=== PATIENT | female | born 1960 | race Caucasian/White ===

== ENCOUNTER 2019-04-06 09:24 | Outpatient (CLI) | payer MEDICARE, SELFPAY ==
[2019-04-06 09:38] LABS: Basophils Absolute Auto 0.08 K/mm3 (0.00-0.10); Eosinophils Absolute Auto 0.39 K/mm3 (0.02-0.50); Eosinophils Percent Auto 4.7 % (1.0-6.0); Hematocrit 42.2 % (35.0-49.0); Hemoglobin 14.2 g/dL (12.0-15.0); Immature Granulocyte Absolute 0.02 K/mm3 (0.00-0.00); Immature Granulocyte Percent A 0.2 % (0.0-0.0); Lymphocytes Absolute Auto 3.18 K/mm3 (1.10-4.50); Lymphocytes Percent Auto 38.2 % (18.0-42.0); Mean Corpuscular HGB Conc 33.6 g/dL (32.0-36.0); Mean Corpuscular Volume 92.1 fL (78.0-102.0); Mean Platelet Volume 9.9 fl (9.2-11.8); Monocytes Absolute Auto 0.57 K/mm3 (0.10-0.90); Monocytes Percent Auto 6.8 % (2.0-11.0); Neutrophils Absolute Auto 4.1 K/mm3 (1.7-7.2); Neutrophils Percent Auto 49.1 % (50.0-70.0); Platelet Count Result 301 K/mm3 (150-420); Red Blood Count 4.58 M/mm3 (4.20-5.40); Red Cell Distribution Width 13.2 % (11.6-14.4); White Blood Count 8.3 K/mm3 (4.8-10.8)
[2019-04-06 10:37] LABS: Anion Gap 15.1 mmol/L (7-16); Blood Urea Nitrogen 17 mg/dL (7-18); Calcium 9.4 mg/dL (8.5-10.1); Carbon Dioxide 28 mmol/L (21-32); Chloride 105 mmol/L (98-108); Estimated Glomerular Filt Rate 46; Glucose 112 mg/dL (70-99); Osmolality Calculated 300 mOsm/kg (285-295); Potassium 4.1 mmol/L (3.5-5.1); Sodium 144 mmol/L (136-145)
[2019-04-06 11:01] LABS: Alanine Aminotransferase 38 U/L (14-59); Alkaline Phosphatase 89 U/L (46-116); Aspartate Amino Transferase 25 U/L (15-37); Bilirubin,Total 0.5 mg/dL (0.00-1.00); Creatine Kinase 222 U/L (26-192); Thyroid Stimulating Hormone 3.12 uIU/mL (0.36-3.74); Total Protein 7.5 g/dL (6.4-8.2)
== END 2019-04-06 09:25 | disposition home or self-care (01) ==
PROVIDERS: PCP Family Medicine; Visit Provider Family Medicine
DX: E78.2 Mixed hyperlipidemia (principal); I10 Essential (primary) hypertension; R19.09 Other intra-abdominal and pelvic swelling, mass and lump
CPT/HCPCS: 36415; 80053; 82550; 84443; 85025

== ENCOUNTER 2019-07-30 12:03 | Outpatient (CLI) | payer MEDICARE, SELFPAY ==
[2019-07-30 12:14] LABS: Basophils Absolute Auto 0.07 K/mm3 (0.00-0.10); Basophils Percent Auto 0.8 % (0.0-1.0); Eosinophils Absolute Auto 0.56 K/mm3 (0.02-0.50); Eosinophils Percent Auto 6.7 % (1.0-6.0); Hematocrit 44.5 % (35.0-49.0); Hemoglobin 14.7 g/dL (12.0-15.0); Immature Granulocyte Absolute 0.04 K/mm3 (0.00-0.00); Immature Granulocyte Percent A 0.5 % (0.0-0.0); Lymphocytes Absolute Auto 2.77 K/mm3 (1.10-4.50); Lymphocytes Percent Auto 33.3 % (18.0-42.0); Mean Corpuscular Hemoglobin 31.4 pg (27.0-31.0); Mean Corpuscular Volume 95.1 fL (78.0-102.0); Mean Platelet Volume 9.6 fl (9.2-11.8); Monocytes Absolute Auto 0.49 K/mm3 (0.10-0.90); Monocytes Percent Auto 5.9 % (2.0-11.0); Neutrophils Absolute Auto 4.4 K/mm3 (1.7-7.2); Neutrophils Percent Auto 52.8 % (50.0-70.0); Platelet Count Result 298 K/mm3 (150-420); Red Blood Count 4.68 M/mm3 (4.20-5.40); Red Cell Distribution Width 13.2 % (11.6-14.4); White Blood Count 8.3 K/mm3 (4.8-10.8)
[2019-07-30 12:59] LABS: Hemoglobin A1C 6.4 % (<5.7)
[2019-07-30 13:11] LABS: Anion Gap 9.9 mmol/L (7-16); Blood Urea Nitrogen 15 mg/dL (7-18); Calcium 9.6 mg/dL (8.5-10.1); Carbon Dioxide 31 mmol/L (21-32); Chloride 107 mmol/L (98-108); Cholesterol 193 mg/dL (0-200); Creatine Kinase 114 U/L (26-192); Estimated Glomerular Filt Rate 50; Glucose 90 mg/dL (70-99); HDL Direct 46 mg/dL (40-60); LDL Cholesterol Calculated 112 mg/dL (<130); Osmolality Calculated 296 mOsm/kg (285-295); Potassium 4.9 mmol/L (3.5-5.1); Sodium 143 mmol/L (136-145); Triglycerides 176 mg/dL (0-150)
== END 2019-07-30 12:04 | disposition home or self-care (01) ==
LOC: CHSLAB 12:06
PROVIDERS: PCP Family Medicine; Visit Provider Family Medicine
DX: E78.2 Mixed hyperlipidemia (principal); R73.9 Hyperglycemia, unspecified; I10 Essential (primary) hypertension
CPT/HCPCS: 36415; 80048; 80061; 82550; 83036; 85025

== ENCOUNTER 2019-08-03 21:45 | Emergency (ER) | payer MEDICARE, OTHER, SELFPAY ==
[2019-08-03 21:45] VITALS: BP 122/96; PULSE 100; RESP 16; TEMP 37.1; O2SAT 97
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
--- NOTE | 2019-08-03 21:54 | ECG_ITS ---
Measurements Intervals [place] Rate: 94 P: 60 OR: 148 QRS: 54 QRSD: 110 T: 67 QT: 381 QTc: 476 Interpretive Statements SINUS RHYTHM INTRAVENTRICULAR CONDUCTION DELAY NONSPECIFIC ST & T-WAVE ABNORMALITY- INF/LAT LEADS BASELINE ARTIFACT- I, II, III, AVR, AVL, AVF, V1-V6 BORDERLINE ECG Electronically Signed On 08-05-2019 17:18:11 CDT by Javid Allison D.O.
[2019-08-03 22:20] LABS: Basophils Absolute Auto 0.08 K/mm3 (0.00-0.10); Basophils Percent Auto 0.9 % (0.0-1.0); Eosinophils Absolute Auto 0.64 K/mm3 (0.02-0.50); Eosinophils Percent Auto 7.3 % (1.0-6.0); Hematocrit 40.6 % (35.0-49.0); Hemoglobin 13.7 g/dL (12.0-15.0); Immature Granulocyte Absolute 0.04 K/mm3 (0.00-0.00); Immature Granulocyte Percent A 0.5 % (0.0-0.0); Lymphocytes Absolute Auto 2.47 K/mm3 (1.10-4.50); Lymphocytes Percent Auto 28.3 % (18.0-42.0); Mean Corpuscular HGB Conc 33.7 g/dL (32.0-36.0); Mean Corpuscular Hemoglobin 31.7 pg (27.0-31.0); Mean Platelet Volume 9.8 fl (9.2-11.8); Monocytes Absolute Auto 0.75 K/mm3 (0.10-0.90); Monocytes Percent Auto 8.6 % (2.0-11.0); Neutrophils Absolute Auto 4.7 K/mm3 (1.7-7.2); Neutrophils Percent Auto 54.4 % (50.0-70.0); Platelet Count Result 298 K/mm3 (150-420); Red Blood Count 4.32 M/mm3 (4.20-5.40); Red Cell Distribution Width 13.2 % (11.6-14.4); White Blood Count 8.7 K/mm3 (4.8-10.8)
[2019-08-03 22:32] LABS: Add Urine Microscopic? YES; Appearance Urine Sl Cloudy (Clear); Bilirubin Urine 1+ (Negative); Blood Urine Negative (Negative); Color Urine Yellow (Yellow); Glucose Urine UA Negative (Negative); Ketones Urine Trace (Negative); Leukocyte Esterase Ur Negative LEU/UL (Negative); Nitrate Urine Negative (Negative); Protein Urine 2+ (Negative); Specific Grav Ur >= 1.030 (1.010-1.020); pH Urine 5.5 (5.0-8.0)
[2019-08-03 22:36] LABS: Bacteria Urine 2+ /hpf; RBC Urine None seen /hpf (0-2); Squamous Epithelial Cell Urine Moderate /hpf (Few); WBC Urine None seen /hpf (0-3)
[2019-08-03 22:42] LABS: Amphetamine Screen Urine Negative (Negative); Barbiturate Screen Urine Negative (Negative); Benzodiazepines Screen Urine Negative (Negative); Cannabinoid Screen Urine Positive (Negative); Cocaine Screen Urine Negative (Negative); Methadone Screen Urine Negative (Negative); Opiate Screen Urine Negative (Negative); Phencyclidine Screen Urine Negative (Negative)
[2019-08-03 22:44] LABS: Alanine Aminotransferase 32 U/L (14-59); Albumin Level 3.4 g/dL (3.4-5.0); Alkaline Phosphatase 83 U/L (46-116); Anion Gap 13.5 mmol/L (7-16); Aspartate Amino Transferase 20 U/L (15-37); Bilirubin,Total 0.3 mg/dL (0.00-1.00); Blood Urea Nitrogen 21 mg/dL (7-18); Calcium 8.7 mg/dL (8.5-10.1); Carbon Dioxide 27 mmol/L (21-32); Chloride 105 mmol/L (98-108); Estimated CRCL calculation 41 ml/min; Estimated Glomerular Filt Rate 33; Glucose 134 mg/dL (70-99); Osmolality Calculated 299 mOsm/kg (285-295); Potassium 3.5 mmol/L (3.5-5.1); Salicylate 2.8 mg/dL (2.8-20.0); Sodium 142 mmol/L (136-145); Thyroid Stimulating Hormone 4.34 uIU/mL (0.36-3.74)
[2019-08-03 22:46] LABS: Acetaminophen 0 ug/mL (10-30); Ethanol < 3 mg/dL (0-6)
--- NOTE | 2019-08-03 23:03 | PC.NURSE ---
Report received, pt. resting and wanting her HS Effexor med. Order from ERP to given pts. own supply of Effexor. Med given and pt. took med s problem. Pt. voicing her wishes to go home and wondering how much longer it would take. Pt. informed of awaiting labs and need to talk c a counselor.
[2019-08-03] MEDS: LORAZEPAM 0.5 MG TABLET PO (23:11)
--- NOTE | 2019-08-04 03:46 | PC.NURSE ---
Pt. yelling and wanting her called to go home. Restraints removed and ERP speaking jose Lopez, counselor and p consultation pt. will be released home to her spouse. Pt. is not suicidal or homicidal and only wants someone to pick her up and take her home.
[2019-08-04 03:52] VITALS: BP 140/78; PULSE 85; RESP 20; TEMP 36.6; O2SAT 97
== END 2019-08-04 03:57 | disposition home or self-care (01) ==
PROVIDERS: Emergency Provider Emergency Medicine; PCP Family Medicine
DX: R45.1 Restlessness and agitation (principal); F41.9 Anxiety disorder, unspecified; Z79.899 Other long term (current) drug therapy; E78.5 Hyperlipidemia, unspecified; I10 Essential (primary) hypertension; F17.200 Nicotine dependence, unspecified, uncomplicated
CPT/HCPCS: 36415; 80053; 80307; 81001; 84443; 85025; 93005; 99284; A9270

== ENCOUNTER 2019-08-06 16:19 | Outpatient (CLI) | payer MEDICARE, SELFPAY ==
[2019-08-06 17:13] LABS: Anion Gap 10.4 mmol/L (7-16); Blood Urea Nitrogen 16 mg/dL (7-18); Calcium 9.5 mg/dL (8.5-10.1); Carbon Dioxide 30 mmol/L (21-32); Chloride 106 mmol/L (98-108); Estimated Glomerular Filt Rate 47; Glucose 78 mg/dL (70-99); Osmolality Calculated 294 mOsm/kg (285-295); Potassium 4.4 mmol/L (3.5-5.1); Sodium 142 mmol/L (136-145)
== END 2019-08-06 16:20 | disposition home or self-care (01) ==
LOC: CHSLAB 16:21
PROVIDERS: PCP Family Medicine; Visit Provider Family Medicine
DX: I10 Essential (primary) hypertension (principal)
CPT/HCPCS: 36415; 80048

== ENCOUNTER 2019-08-21 18:57 | Emergency (ER) | payer MEDICARE, OTHER, SELFPAY ==
--- NOTE | ~2019-08-21 | XR_ITS ---
EXAMINATION: XR chest 1V portable DATE: 08/21/2019 19:23 INDICATION: Confusion. Agitation. TECHNIQUE: A single frontal view of the chest was obtained. COMPARISON: Chest 2 views 03/04/2014 FINDINGS: The chest demonstrates clear lungs without pneumonia, pleural effusion, or pneumothorax. Th e heart size is normal. Calcified mediastinal lymph nodes are consistent with old granulomatous disea se. IMPRESSION: 1. No acute cardiopulmonary disease. Reviewed, dictated and finalized at location A.
--- NOTE | ~2019-08-21 | CT_ITS ---
EXAMINATION: CT brain wo con DATE: 08/21/2019 19:23 INDICATION: Confusion. Head injury. TECHNIQUE: Computed tomography (CT) of the head was performed without intravenous contrast. The mA wa s adjusted according to patient size. Iterative reconstruction technique was employed. The dose-lengt h product was 605.33 mGy-cm. COMPARISON: Head CT 08/20/2016 FINDINGS: There is no intracranial hemorrhage, acute infarction, or abnormal intracranial mass lesion . The ventricles are normal in size. The orbits are normal. There is mucosal thickening in the parana diann sinuses. There is a trace right mastoid effusion. IMPRESSION: 1. Normal brain. Reviewed, dictated and finalized at location A. IMPRESSION: 1. Normal brain.
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
[2019-08-21 19:05] VITALS: BP 122/70; PULSE 83; RESP 18; TEMP 37.1; O2SAT 97
--- NOTE | 2019-08-21 19:09 | ECG_ITS ---
Measurements Intervals [place] Rate: 79 P: 66 [place]: 174 QRS: 31 QRSD: 113 T: 48 QT: 410 QTc: 472 Interpretive Statements SINUS RHYTHM INTRAVENTRICULAR CONDUCTION DELAY BORDERLINE ST-T WAVE ABNORMALITY- INF/LAT LEADS BASELINE ARTIFACT- I, II, III, AVR, AVL, AVF BORDERLINE ECG Electronically Signed On 08-21-2019 20:59:23 CDT by Javid Allison D.O.
[2019-08-21 19:24] LABS: Basophils Absolute Auto 0.08 K/mm3 (0.00-0.10); Eosinophils Absolute Auto 0.46 K/mm3 (0.02-0.50); Eosinophils Percent Auto 5.7 % (1.0-6.0); Hematocrit 38.9 % (35.0-49.0); Hemoglobin 13.4 g/dL (12.0-15.0); Immature Granulocyte Absolute 0.05 K/mm3 (0.00-0.00); Immature Granulocyte Percent A 0.6 % (0.0-0.0); Lymphocytes Absolute Auto 2.43 K/mm3 (1.10-4.50); Lymphocytes Percent Auto 29.9 % (18.0-42.0); Mean Corpuscular HGB Conc 34.4 g/dL (32.0-36.0); Mean Corpuscular Hemoglobin 32.4 pg (27.0-31.0); Mean Platelet Volume 9.9 fl (9.2-11.8); Monocytes Absolute Auto 0.65 K/mm3 (0.10-0.90); Neutrophils Absolute Auto 4.5 K/mm3 (1.7-7.2); Neutrophils Percent Auto 54.8 % (50.0-70.0); Platelet Count Result 268 K/mm3 (150-420); Red Blood Count 4.14 M/mm3 (4.20-5.40); Red Cell Distribution Width 13.2 % (11.6-14.4); White Blood Count 8.1 K/mm3 (4.8-10.8)
[2019-08-21 19:48] LABS: Acetaminophen 0 ug/mL (10-30); Alanine Aminotransferase 32 U/L (14-59); Albumin Level 3.5 g/dL (3.4-5.0); Alkaline Phosphatase 90 U/L (46-116); Anion Gap 11.8 mmol/L (7-16); Aspartate Amino Transferase 19 U/L (15-37); Bilirubin,Total 0.5 mg/dL (0.00-1.00); Blood Urea Nitrogen 14 mg/dL (7-18); Calcium 8.8 mg/dL (8.5-10.1); Carbon Dioxide 27 mmol/L (21-32); Chloride 103 mmol/L (98-108); Estimated CRCL calculation 54 ml/min; Estimated Glomerular Filt Rate 44; Ethanol < 3 mg/dL (0-6); Glucose 83 mg/dL (70-99); Osmolality Calculated 285 mOsm/kg (285-295); Potassium 3.8 mmol/L (3.5-5.1); Salicylate 3.3 mg/dL (2.8-20.0); Sodium 138 mmol/L (136-145); Thyroid Stimulating Hormone 2.31 uIU/mL (0.36-3.74)
[2019-08-21 20:10] LABS: Appearance Urine Clear (Clear); Bilirubin Urine Negative (Negative); Color Urine Yellow (Yellow); Glucose Urine UA Negative (Negative); Ketones Urine Negative (Negative); Leukocyte Esterase Ur Negative LEU/UL (Negative); Nitrate Urine Negative (Negative); Protein Urine Negative (Negative); Specific Grav Ur 1.015 (1.010-1.020); pH Urine 6.5 (5.0-8.0)
[2019-08-21 20:14] LABS: Add Urine Microscopic? YES; Bacteria Urine Trace /hpf; Blood Urine Trace (Negative); RBC Urine 0-2 /hpf (0-2); Squamous Epithelial Cell Urine Few /hpf (Few); WBC Urine 0-3 /hpf (0-3)
[2019-08-21 20:16] LABS: Amphetamine Screen Urine Negative (Negative); Barbiturate Screen Urine Negative (Negative); Benzodiazepines Screen Urine Positive (Negative); Cannabinoid Screen Urine Positive (Negative); Cocaine Screen Urine Negative (Negative); Methadone Screen Urine Negative (Negative); Opiate Screen Urine Negative (Negative); Phencyclidine Screen Urine Negative (Negative)
[2019-08-21] MEDS: TETANUS,DIPHTHERIA,AC PERTUSSIS ADULT 0.5 ML (ADACEL) (20:49)
[2019-08-21] MEDS: NEOMYCIN/POLYMYXIN/BACITRACIN OINTMENT PACKET 1 PACKET (20:51)
[2019-08-21 21:05] VITALS: BP 118/65; PULSE 85
== END 2019-08-21 21:05 | disposition home or self-care (01) ==
PROVIDERS: Emergency Provider Emergency Medicine; PCP Family Medicine
DX: S01.111A Laceration without foreign body of right eyelid and periocular area, initial encounter (principal); R45.1 Restlessness and agitation; S09.90XA Unspecified injury of head, initial encounter; Z79.899 Other long term (current) drug therapy
CPT/HCPCS: 12011; 36415; 70450; 71045; 80053; 80307; 81001; 84443; 85025; 90471; 90715; 93005; 99284

== ENCOUNTER 2019-08-25 10:56 | Outpatient (CLI) | payer MEDICARE, OTHER, SELFPAY ==
--- NOTE | ~2019-08-25 | MR_ITS ---
EXAMINATION: MR brain/brain stem wo/w con DATE: 08/25/2019 12:00 INDICATION: Confusion. TECHNIQUE: Magnetic resonance imaging (MRI) of the brain and brainstem was performed without and with 18 mL MultiHance intravenous contrast. Sequences included sagittal and axial T1-weighted FSE, axial diffusion-weighted FS EPI, axial T2*-weighted GRE, axial T2-weighted FLAIR Propeller, and axial T2-we ighted Propeller. Postcontrast sequences included axial and coronal T1-weighted FSE. Apparent diffusi on coefficient (ADC) maps were created. COMPARISON: Brain MRI 09/08/2016, cervical spine MRI 11/29/2016 FINDINGS: There are approximately 8 total lesions of increased T2-weighted signal intensity in the br ain. Of these lesions, approximately most are periventricular, two are juxtacortical, and one is infr atentorial. None of the lesions enhance. There is no intracranial hemorrhage, acute infarction, or a bnormal intracranial mass lesion. The ventricles are normal in size. There is mucosal thickening in t he paranasal sinuses. The orbits are normal. The mastoid air cells are normal. IMPRESSION: 1. Worsened cerebral white matter disease, consistent with multiple sclerosis. Reviewed, dictated and finalized at location A.
== END 2019-08-25 10:57 | disposition home or self-care (01) ==
LOC: CHSIMG 11:00
PROVIDERS: PCP Family Medicine; Visit Provider Family Medicine
DX: R41.82 Altered mental status, unspecified (principal)
CPT/HCPCS: 70553; A9577

== ENCOUNTER 2019-09-07 14:54 | Outpatient (CLI) | payer MEDICARE, SELFPAY ==
[2019-09-07 16:22] LABS: Erythrocyte Sedimentation Rate 20 mm/hr (0-20)
[2019-09-07 16:25] LABS: Folic Acid 13.7 ng/mL (8.6->20); Vitamin B12 333 pg/mL (193-986)
[2019-09-07 16:26] LABS: CRP < 0.2 mg/dL (0.0-0.9)
[2019-09-10 10:14] LABS: RPR Screen Non-Reactive (Non-Reactive)
[2019-09-10 13:37] LABS: Lithium <0.15 mmol/L (0.60-1.20)
[2019-09-10 17:43] LABS: Lyme Disease Ab (IgM), Blot Negative (Negative); Lyme Disease Ab(IgG), Blot Negative (Negative)
[2019-09-12 15:13] LABS: Lead, Blood 1 mcg/dL (<5)
[2019-09-13 10:19] LABS: Collection Sample VENOUS
[2019-10-02 14:23] LABS: Collection Sample BLOOD
== END 2019-09-07 14:55 | disposition home or self-care (01) ==
LOC: CHSLAB 14:59
PROVIDERS: PCP Family Medicine
DX: R41.0 Disorientation, unspecified (principal); R27.9 Unspecified lack of coordination; G93.49 Other encephalopathy
CPT/HCPCS: 36415; 80178; 82175; 82607; 82746; 83655; 83825; 85652; 86140; 86592; 86617

== ENCOUNTER 2019-09-19 13:40 | Outpatient (CLI) | payer MEDICARE, OTHER, SELFPAY ==
--- NOTE | ~2019-09-19 | MR_ITS ---
EXAMINATION: MR cervical spine wo/w con EXAM DATE: 09/19/2019 14:58 INDICATION: Multiple sclerosis. TECHNIQUE: Multi-sequential, multiplanar MR images of the cervical spine were obtained without contra st. Axial T2, axial T2 MERGE sequence. Sagittal T1, T2, T2 fat saturation images also obtained. Axi al T1 weighted sequence. Patient was then injected with 18 mL Multihance intravenous contrast and re imaged. Postcontrast axial and sagittal T1-weighted fat saturation sequences were obtained. Compari son is made to prior examination from 11/29/2016. FINDINGS: There is mild to moderate loss of the C5-6 and 6-7 disc height, mild at C4-5. The vertebra l bodies are aligned in the AP dimension. There are no suspicious marrow signal abnormalities. Parasp inal soft tissue is unremarkable. Again there are several small regions of increased T2 signal intensity within the spinal cord, likely myelomalacia from prior episodes of multiple sclerosis. There is a new punctate focus of increased T 2 signal, and associated enhancement within the left aspect of the spinal cord at the mid C6 level, m ost likely focus of acute inflammation. This is only about 2 mm in size. Level by level evaluation: C2-C3: Disc does not extend beyond the endplate margin. Uncovertebral joint arthropathy: None. Facet joint arthropathy: Mild. Neural foraminal stenosis: No stenosis. Central canal stenosis: No stenosis. C3-C4: Disc does not extend beyond the endplate margin. Uncovertebral joint arthropathy: None. Facet joint arthropathy: Mild. Neural foraminal stenosis: No stenosis. Central canal stenosis: No stenosis. C4-C5: There is a mild diffuse disc bulge. Uncovertebral joint arthropathy: Mild bilateral. Facet joint arthropathy: Mild to moderate bilateral. Neural foraminal stenosis: Mild to moderate left, mild right. Central canal stenosis: Mild. C5-C6: There is a mild diffuse disc bulge. Uncovertebral joint arthropathy: Mild bilateral. Facet joint arthropathy: Moderate bilateral. Neural foraminal stenosis: Mild bilateral. Central canal stenosis: Mild. C6-C7: There is a mild diffuse disc bulge asymmetric to the right Uncovertebral joint arthropathy: Moderate right, mild left. Facet joint arthropathy: Mild bilateral. Neural foraminal stenosis: Mild to moderate bilateral. Central canal stenosis: Mild. C7-T1: Disc does not extend beyond the endplate margin. Uncovertebral joint arthropathy: None. Facet joint arthropathy: Mild to moderate right, mild left. Neural foraminal stenosis: No stenosis. Central canal stenosis: No stenosis. IMPRESSION: 1. Punctate focus of spinal cord enhancement at C6 level could be acute focus of inflammation. 2. Several other small regions of chronic spinal cord myelomalacia. 3. Mild to moderate cervical spondylosis. Reviewed, dictated and finalized at location A.
== END 2019-09-19 13:41 | disposition home or self-care (01) ==
PROVIDERS: PCP Family Medicine
DX: G35 Multiple sclerosis (principal); M47.892 Other spondylosis, cervical region
CPT/HCPCS: 72156; A9577

== ENCOUNTER 2019-09-25 12:40 | Outpatient (CLI) | payer MEDICARE, OTHER, SELFPAY ==
--- NOTE | 2019-09-25 13:30 | NEURO_ITS ---
TEST: ELECTROENCEPHALOGRAM DIAGNOSIS: CONFUSION; FALLS PATIENT NUMBER: [id number] EEG NUMBER: [id number] RECORDING DATE: 09/25/19 CLINICAL HISTORY: Patient reports she fell and hit her head a couple of months ago and has been having confusion and unsteady gait since then. CONDITION OF RECORDING: Awake, drowsy and sleep EEG DESCRIPTION: Basic resting occipital frequency consists of small amount of poorly organized low voltage 8-9hz alpha mixed with very low voltage 15-18hz beta. Throughout the tracing intermittent 2-3hz delta activity is seen. During drowsiness low voltage beta activity is seen diffusely mixed with waxing and waning posterior alpha rhythms. Bilateral symmetrical sleep activity is seen during sleep. Photic stimulation produced normal drive. Nonparoxysmal. Nonfocal. Nonlateralizing. IMPRESSION: Abnormal record due to the absence of normal background rhythms and the presence of the bi-hemispheric theta and delta activity intermittently. Clinical correlation recommended. These abnormalities could be suggestive of underlying organic or metabolic encephalopathy or focal structural lesion. MTDD
== END 2019-09-25 12:41 | disposition home or self-care (01) ==
PROVIDERS: PCP Family Medicine
DX: R41.0 Disorientation, unspecified (principal); R94.01 Abnormal electroencephalogram [EEG]
CPT/HCPCS: 95816

== ENCOUNTER 2019-10-22 15:58 | Outpatient (RCR) | payer MEDICARE, OTHER, SELFPAY ==
--- NOTE | 2019-10-22 16:39 | PTOPEVAL ---
Thank you for referring Jannie Peña to [facility].? The patient is scheduled to be seen for therapy? ___3_x/week for _4__ weeks. Please review, sign, date and return this plan of care MEE. I agree with and certify that the following plan of care is medically necessary. Referring Physician Date Admitting Provider: Attending Provider: PHYSICIAN NOT ON STAFF Referring Provider: *PT Outpatient Evaluation Start: 10/22/19 16:04 Freq: Status: Active Protocol: Document 10/22/19 16:05 BERNARD (Rec: 10/22/19 16:39 BERNARD [id number]) Therapy Assessment Status Assessment Status Assessment Status Evaluation Outpatient Past Medical History Cardiovascular History Hx Hypercholesterolemia Yes Gastrointestinal History Hx Gastric Bypass Surgery Yes Endocrine History Hx Hypothyroidism Yes Reproductive History Hx Post Menopausal Yes Psychosocial History Hx Depression Yes Evaluation Information Problem Diagnosis frequent falls, MS Onset 07/22/19 Subjective Information Pt. reports that she had Query Text:As Reported By Patient/ recent brain scan that Family revealed MS. She states that she has been fallilng frequently. she reports that she has fallen about 4 times and had to go to the ER several times. She states that she is unsure of why she falls. She states that she does not use an AD. She states that she has a walker at home and a cane but does not want to use them. She reports that her goal is to improve her balance and fall less Prior Level of Function Activity Level (Last 3 Months) Occupation disability Hand Dominance Right Activity of Daily Living Ability Needs Some Help Indoor/Home Mobility Needs Some Help Community Mobility Needs Some Help Stairs Ability Needs Some Help Functional Cognition (Planning, Shopping Dependent , Taking Medications) Cooking No Cleaning No Laundry No Shopping No Driving No Pain Assessment Self Report Self Report Pain Level 0 Pain Score Pain Score 0: Self Report Lower Extremity Muscle Strength Testing General Lower Extremity Strength Gross Lowe
== END 2019-11-19 10:31 | disposition home or self-care (01) ==
LOC: CHSPT 15:58
DX: G35 Multiple sclerosis (principal)
CPT/HCPCS: 97110; 97112; 97161; 97530

== ENCOUNTER 2020-01-18 14:08 | Outpatient (CLI) | payer MEDICARE, SELFPAY ==
[2020-01-18 15:53] LABS: Basophils Absolute Auto 0.07 K/mm3 (0.00-0.10); Basophils Percent Auto 0.8 % (0.0-1.0); Eosinophils Absolute Auto 0.56 K/mm3 (0.02-0.50); Eosinophils Percent Auto 6.8 % (1.0-6.0); Hemoglobin 13.4 g/dL (12.0-15.0); Immature Granulocyte Absolute 0.04 K/mm3 (0.00-0.00); Immature Granulocyte Percent A 0.5 % (0.0-0.0); Lymphocytes Absolute Auto 2.97 K/mm3 (1.10-4.50); Lymphocytes Percent Auto 35.8 % (18.0-42.0); Mean Corpuscular HGB Conc 32.7 g/dL (32.0-36.0); Mean Corpuscular Hemoglobin 31.5 pg (27.0-31.0); Mean Corpuscular Volume 96.5 fL (78.0-102.0); Mean Platelet Volume 10.4 fl (9.2-11.8); Monocytes Absolute Auto 0.57 K/mm3 (0.10-0.90); Monocytes Percent Auto 6.9 % (2.0-11.0); Neutrophils Absolute Auto 4.1 K/mm3 (1.7-7.2); Neutrophils Percent Auto 49.2 % (50.0-70.0); Platelet Count Result 358 K/mm3 (150-420); Red Blood Count 4.25 M/mm3 (4.20-5.40); Red Cell Distribution Width 12.9 % (11.6-14.4); White Blood Count 8.3 K/mm3 (4.8-10.8)
[2020-01-18 16:07] LABS: Alanine Aminotransferase 38 U/L (14-59); Albumin Level 3.6 g/dL (3.4-5.0); Alkaline Phosphatase 103 U/L (46-116); Anion Gap 6 mmol/L (8-16); Aspartate Amino Transferase 23 U/L (15-37); Bilirubin,Total 0.4 mg/dL (0.00-1.00); Blood Urea Nitrogen 17 mg/dL (7-18); Calcium 9.2 mg/dL (8.5-10.1); Carbon Dioxide 29 mmol/L (21-32); Chloride 107 mmol/L (98-108); Estimated Glomerular Filt Rate 52; Glucose 95 mg/dL (70-99); Osmolality Calculated 295 mOsm/kg (285-295); Potassium 4.5 mmol/L (3.5-5.1); Sodium 142 mmol/L (136-145); Thyroid Stimulating Hormone 1.09 uIU/mL (0.36-3.74); Total Protein 7.4 g/dL (6.4-8.2)
== END 2020-01-18 14:09 | disposition home or self-care (01) ==
LOC: CHSLAB 14:11
PROVIDERS: PCP Family Medicine; Visit Provider Family Medicine
DX: E03.8 Other specified hypothyroidism (principal); I10 Essential (primary) hypertension
CPT/HCPCS: 36415; 80053; 84443; 85025

== ENCOUNTER 2020-06-18 22:03 | Observation (INO) | payer MEDICARE, OTHER, SELFPAY ==
--- NOTE | ~2020-06-18 | XR_ITS ---
EXAMINATION: XR chest 1V portable EXAM DATE: 06/18/2020 22:25 INDICATION: Shortness of breath. Syncope. TECHNIQUE: Portable AP frontal chest x-ray was obtained. Comparison is made to prior examination from 08/21/2019. FINDINGS: The lungs are clear. There are no pleural effusions. The cardiomediastinal silhouette is within normal limits. There is no pneumothorax suspected. The bones and soft tissues are unremarkab le. IMPRESSION: No acute cardiopulmonary findings. Reviewed, dictated and finalized at location G.
--- NOTE | ~2020-06-18 | CT_ITS ---
EXAMINATION: CT brain wo [facility] EXAM DATE: 06/18/2020 22:45 INDICATION: Fall, syncope, hit frontal head, frontal head pain. TECHNIQUE: Spiral CT of the head was performed without contrast. Axial, coronal and sagittal images were reviewed. The dose-length product (DLP) for this examination was 605.33 mGy-cm. The exposure w as tailored according to patient size, and iterative reconstruction (ASIR) was used as additional dos e reduction technique. Comparison is made to prior examination from 08/21/2019. FINDINGS: There is no acute intraparenchymal hemorrhage. No evidence of intraparenchymal brain mass lesion. No evidence of acute infarction. There is no mass effect or midline shift. The ventricles are normal in size. There are no extra-axial collections. There are no acute calvarial fractures. T he orbits are unremarkable. Soft tissue is unremarkable. The visualized sinuses and mastoid air yodit ls are well aerated. IMPRESSION: 1. No acute intracranial findings. Reviewed, dictated and finalized at location G.
--- NOTE | ~2020-06-18 | US_ITS ---
EXAMINATION: US venous doppler [facility] DATE: 06/19/2020 09:09 INDICATION: Syncope. TECHNIQUE: Grayscale ultrasound images without and with compression and Doppler ultrasound images of the bilateral lower extremity veins were obtained. COMPARISON: None. FINDINGS: The visualized portions of right common femoral vein, profunda (deep) femoral vein, femoral vein, pop liteal vein, peroneal veins, posterior tibial veins, and greater saphenous vein outflow are patent. The visualized portions of left common femoral vein, profunda femoral vein, femoral vein, popliteal v ein, peroneal veins, posterior tibial veins, and greater saphenous vein outflow are patent. IMPRESSION: 1. No deep venous thrombosis. Reviewed, dictated and finalized at location B.
--- NOTE | ~2020-06-18 | CT_ITS ---
EXAMINATION: CTA chest PE protocol DATE: 06/19/2020 09:48 INDICATION: Syncope. TECHNIQUE: Computed tomography angiography (CTA) of the chest was performed with 100 mL Omnipaque-350 intravenous contrast timed to evaluate the pulmonary arteries. Coronal maximum intensity projection 3D-reconstructions were created by the technologist. Automated exposure control and iterative reconst ruction technique were employed. The dose-length product was 1016.36 mGy-cm. COMPARISON: None. FINDINGS: There is mild atelectasis bilaterally. A calcified left lung nodule and calcified left austin r and mediastinal lymph nodes are consistent with old granulomatous disease. The heart size is normal . No pericardial effusion. There is no pulmonary embolus. Calcifications in the liver and spleen are consistent with old granulomatous disease. There is a lap band around the proximal stomach. There is mild thoracic spondylosis. IMPRESSION: 1. No pulmonary embolus. Reviewed, dictated and finalized at location B. IMPRESSION: 1. No pulmonary embolus.
[2020-06-18 22:05] VITALS: PULSE 101
--- NOTE | 2020-06-18 22:07 | ECG_ITS ---
Measurements Intervals [place] Rate: 100 P: 72 [place]: 152 QRS: 67 QRSD: 113 T: 105 QT: 361 QTc: 466 Interpretive Statements SINUS TACHYCARDIA INTRAVENTRICULAR CONDUCTION DELAY NONSPECIFIC ST & T-WAVE ABNORMALITY- DIFFUSE LEADS BASELINE ARTIFACT- I, II, III, AVR, AVF BORDERLINE ECG Electronically Signed On 06-19-2020 6:42:37 CDT by Javid Allison D.O.
[2020-06-18 22:08] VITALS: BP 137/78; PULSE 106; RESP 22; TEMP 36.3; O2SAT 96
[2020-06-18 22:19] VITALS: O2SAT 91
--- NOTE | 2020-06-18 22:25 | ED.SYNCOPE ---
HPI - Syncope General Chief Complaint: Syncope Stated Complaint: AMB Time Seen by Provider: 06/18/20 22:15 Source: patient, family and EMS Mode of arrival: EMS Limitations: clinical condition History of Present Illness HPI narrative: Patient is brought in after a syncopal episode on the toilet at home. She reportedly had not felt well and had been cool and clammy prior to falling on her face. She was only briefly out, for a few seconds, after the fall according to her . She quickly came to and was responsive. Therefore the episode is felt to have been pretty brief seconds long. According to the she has had previous episodes of syncope, in the distant past. These have not been associated with shortness of breath or any chest pain, or any other specific symptoms. No other symptoms. Nothing is known to have precipitated this except being on the toilet, but apparently she felt presyncopal prior to sitting on the toilet. Context, sitting on the toilet. No other associated signs or symptms MD complaint: felt faint Onset (ago): minute(s) Prodromal symptoms: lightheaded, diaphoresis and nausea/vomiting Witnessed: No Context: other (when walking) Injuries sustained associated with event: other (fell on forehead) Current symptoms: back to baseline History: previous syncopal episode Related Data Home Medications Medication Instructions Recorded Confirmed atorvastatin 40 mg PO DAILY 08/03/19 06/18/20 venlafaxine 75 mg PO BID 08/03/19 06/18/20 albuterol sulfate [ProAir HFA] 2 puff INHALATION PRN PRN 08/21/19 06/18/20 fluticasone propionate [Flovent 2 inh INHALATION DAILY 08/21/19 06/18/20 Diskus] glatiramer [Glatopa] See Rx Instructions .ROUTE .COMPLEX 06/18/20 06/18/20 levothyroxine [Synthroid] 75 mcg PO DAILY 06/18/20 06/18/20 losartan [Cozaar] 100 mg PO DAILY 06/18/20 06/18/20 potassium chloride 20 meq PO DAILY 06/18/20 06/18/20 Allergies Allergy/AdvReac Type Severity Reaction Status Date / Time aspirin [Fiorinal] Allergy Intermediate Verified 10/04/16 13:16 caffeine [Fiorinal] Allergy Intermediate Verified 10/04/16 13:16 codeine Allergy Intermediate Verified 06/10/11 12:19 adhesive Allergy Unknown RASH Verified 11/08/17 14:23 butalbital AdvReac Unknown CONFUSION Verified 11/08/17 14:24 Antihistamines Allergy Intermediate Uncoded 06/10/11 12:20 ANTIHISTAMINES Allergy Unknown HIVES Uncoded 11/08/17 14:23 Review of Systems Constitutional: Constitutional: Reports no additional constitutional complaints Eyes: Eyes: Reports no additional eye complaints ENT: Reports system reviewed and no additional complaints, except as documented Cardiovascular: Cardiovascular: Reports no additional cardiovascular complaints Respiratory: Respiratory: Reports no additional respiratory complaints Gastrointestinal: Gastrointestinal: Reports no additional gastrointestinal complaints Genitourinary: Genitourinary: Reports no additional female genitourinary complaints Musculoskeletal: Musculoskeletal: Reports no additional musculoskeletal complaints Integumentary/Breasts: Skin/Breast: Reports system reviewed and no additional complaints, except as docu Neurologic: Reports system reviewed and no additional complaints, except as documented Psychiatric: Psychiatric: Reports no additional psychiatric complaints Endocrine: Endocrine: Reports no additional endocrine complaints Hematologic/Lymphatic: Hematologic/Lymphatic: Reports no additional hematologic/lymphatic complaints [facility] Past Medical History Medical History (Updated 06/19/20 @ 05:09 by Damián Vieira MD) Anxiety Dyslipidemia Hypertension Surgical History Surgical History H/O bariatric surgery gastric sleeve History of back surgery History of carpal tunnel surgery History of hysterectomy Family History Family History Father Hypertension Father Hyp
[2020-06-18 22:38] LABS: Basophils Absolute Auto 0.05 K/mm3 (0.00-0.10); Basophils Percent Auto 0.7 % (0.0-1.0); Eosinophils Absolute Auto 0.13 K/mm3 (0.02-0.50); Eosinophils Percent Auto 1.7 % (1.0-6.0); Hematocrit 44.9 % (35.0-49.0); Hemoglobin 14.4 g/dL (12.0-15.0); Immature Granulocyte Absolute 0.12 K/mm3 (0.00-0.00); Immature Granulocyte Percent A 1.6 % (0.0-0.0); Lymphocytes Absolute Auto 3.36 K/mm3 (1.10-4.50); Lymphocytes Percent Auto 43.8 % (18.0-42.0); Mean Corpuscular HGB Conc 32.1 g/dL (32.0-36.0); Mean Corpuscular Hemoglobin 30.4 pg (27.0-31.0); Mean Corpuscular Volume 94.9 fL (78.0-102.0); Mean Platelet Volume 9.8 fl (9.2-11.8); Monocytes Absolute Auto 0.09 K/mm3 (0.10-0.90); Monocytes Percent Auto 1.2 % (2.0-11.0); Neutrophils Absolute Auto 3.9 K/mm3 (1.7-7.2); Platelet Count Result 356 K/mm3 (150-420); Red Blood Count 4.73 M/mm3 (4.20-5.40); Red Cell Distribution Width 13.3 % (11.6-14.4); White Blood Count 7.7 K/mm3 (4.8-10.8)
[2020-06-18 22:51] LABS: Prothrombin Time 10.3 Seconds (9.50-12.10)
[2020-06-18 23:12] LABS: Alanine Aminotransferase 39 U/L (14-59); Albumin Level 3.3 g/dL (3.4-5.0); Alkaline Phosphatase 144 U/L (46-116); Anion Gap 13 mmol/L (8-16); Aspartate Amino Transferase 26 U/L (15-37); Bilirubin,Total 0.3 mg/dL (0.00-1.00); Blood Urea Nitrogen 21 mg/dL (7-18); Calcium 8.5 mg/dL (8.5-10.1); Carbon Dioxide 22 mmol/L (21-32); Chloride 103 mmol/L (98-108); Estimated CRCL calculation 44 ml/min; Estimated Glomerular Filt Rate 34; Glucose 222 mg/dL (70-99); NT Pro B Type Natriuretic Pept 81 pg/mL (0-125); Osmolality Calculated 296 mOsm/kg (285-295); Potassium 3.8 mmol/L (3.5-5.1); Sodium 138 mmol/L (136-145); Total Protein 7.4 g/dL (6.4-8.2)
[2020-06-18 23:31] LABS: Creatine Kinase 126 U/L (26-192)
[2020-06-18 23:42] LABS: D Dimer 3.44 mg/L (0.19-0.50)
--- NOTE | 2020-06-18 23:50 | PC.NURSE ---
Pt. wanting to go home. Spouse wanting pt to stay. After speaking c pt. and explaining all risks, pt. agreeable to plan of staying for further testing tomorrow.
[2020-06-19] VITALS (8 sets, daily range): BP systolic 90–144; BP diastolic 58–105; PULSE 62–95; RESP 18–20; TEMP 36.1–36.5; O2SAT 95–98; BMI 36.1
[2020-06-19] MEDS: SODIUM CHLORIDE 0.9% IV 1,000 ML 150 ML IV CONT ×2 (00:01→05:04)
--- NOTE | 2020-06-19 00:30 | ADMGEN ---
This patient, Jannie Peña, was admitted to 2nd Floor Room 208-2. Patient oriented to hospital policies and general routines including ID bracelet, bed and alarms, pain management, procedures, bathroom and other care routines, personal items, smoking policy, room service/diet, and visiting hours. Information on how to activate the Rapid Response Team has been discussed. Patient encouraged to report perceived risks to care and to ask questions if they do not understand what they are told or what they should do.
[2020-06-19] MEDS: HYDROcodone/acetaminophen (*CRX) 5-325 MG TABLET 1 TAB PO (01:07)
[2020-06-19] MEDS: ENOXAPARIN 100 MG/ML SYRINGE SUB-Q (01:07)
[2020-06-19 05:46] LABS: Add Urine Microscopic? YES; Bilirubin Urine Negative (Negative); Blood Urine Negative (Negative); Color Urine Yellow (Yellow); Glucose Urine UA Negative (Negative); Ketones Urine Negative (Negative); Leukocyte Esterase Ur Negative (Negative); Nitrate Urine Negative (Negative); Protein Urine 1+ (Negative); Specific Grav Ur >= 1.030 (1.010-1.020); Urobilinogen Urine 0.2 mg/dL (0.2-1.0)
[2020-06-19 05:50] LABS: Amphetamine Screen Urine Negative (Negative); Barbiturate Screen Urine Negative (Negative); Benzodiazepines Screen Urine Negative (Negative); Cannabinoid Screen Urine Positive (Negative); Cocaine Screen Urine Negative (Negative); Methadone Screen Urine Negative (Negative); Opiate Screen Urine Positive (Negative); Phencyclidine Screen Urine Negative (Negative)
[2020-06-19] MEDS: LEVOTHYROXINE SODIUM 75 MCG TABLET PO (05:53)
[2020-06-19 05:54] LABS: Appearance Urine Sl Cloudy (Clear); Bacteria Urine 1+ /hpf; RBC Urine None seen /hpf (0-2); Squamous Epithelial Cell Urine Moderate /hpf (Few); WBC Urine 0-3 /hpf (0-3)
[2020-06-19 05:55] LABS: Mucus Urine Heavy /lpf
[2020-06-19 07:33] LABS: Anion Gap 5 mmol/L (8-16); Blood Urea Nitrogen 19 mg/dL (7-18); Carbon Dioxide 27 mmol/L (21-32); Chloride 107 mmol/L (98-108); Estimated CRCL calculation 59 ml/min; Estimated Glomerular Filt Rate 48; Glucose 105 mg/dL (70-99); Osmolality Calculated 290 mOsm/kg (285-295); Potassium 4.2 mmol/L (3.5-5.1); Sodium 139 mmol/L (136-145)
[2020-06-19 07:34] LABS: Troponin I 45.9 ng/L (0.00-60.4)
--- NOTE | 2020-06-19 07:52 | PM.IMHP ---
H&P: HPI History of Present Illness Date/Time: 06/19/20 07:52 Disregard this note and see Same Day Admit/Discharge Note. Review of Systems Constitutional: Constitutional: Reports no additional constitutional complaints, Denies body ache(s), Denies chills, Denies fever(s) and Denies headache(s) Eyes: Eyes: Reports no additional eye complaints ENT: Reports system reviewed and no additional complaints, except as documented Cardiovascular: Cardiovascular: Reports no additional cardiovascular complaints, Denies chest pain and Denies chest pain at rest Respiratory: Respiratory: Reports no additional respiratory complaints, Denies cough and Denies dyspnea Gastrointestinal: Gastrointestinal: Reports no additional gastrointestinal complaints Musculoskeletal: Musculoskeletal: Reports no additional musculoskeletal complaints and Reports as per HPI Neurologic: Reports system reviewed and no additional complaints, except as documented and Reports as per HPI Comments: Pt has had similar incidents in the past [facility] Past Medical History Medical History (Updated 06/19/20 @ 09:48 by Rigo Uribe, MECHANICAL PRESS OPERATOR-C) Abdominal pain, other specified site (03/31/15) Acquired hypothyroidism (12/04/13) Acute bronchitis (03/01/14) Acute sinusitis, unspecified (03/01/14) Adverse effects of medication (03/13/12) Allergic rhinitis (09/14/13) Anxiety Asthma Ataxia (09/24/16) Bipolar disorder (10/04/16) Bipolar I disorder, single manic episode, unspecified (11/06/13) BMI greater than 30 (01/02/18) Breast lump (03/29/17) Cigarette smoker (01/04/18) Dizziness (08/24/16) Dyslipidemia Endometrial cancer (05/30/14) Essential hypertension (07/19/11) Hand pain (01/27/18) Hyperlipidemia (10/19/16) Hypertension Hypokalemia (10/19/16) Hypothyroidism (03/31/15) Moderate asthma with exacerbation (03/01/14) Multiple sclerosis Neck pain (03/29/17) Nicotine dependence (01/15/11) Parkinsons disease (09/06/16) Peripheral neuropathy (06/04/13) Postmenopausal vaginal bleeding (03/13/12) Psoriasis (09/14/13) Shoulder bursitis (03/29/17) Shoulder pain (07/01/16) Suprapubic abdominal pain (12/04/13) Tremor (10/04/16) Surgical History Surgical History H/O bariatric surgery gastric sleeve History of back surgery History of carpal tunnel surgery History of hysterectomy Family History Family History Father Hypertension Father Hypertension Mother Family history of type 2 diabetes mellitus Social History Social History Smoking packs per day: 1 Smoking cigarettes per day: 20.0 Smoking status: Heavy tobacco smoker Second hand tobacco smoke exposure: No Alcohol intake: never Substance use: never Substance use type: marijuana Other substance usage details: Denies other drug use. Gender identity (if verbalized by the patient): Female Sexual Orientation (if Verbalized by the Patient): Straight or Heterosexual Spiritual care concerns: No Meds Home Medications and Allergies Home Medications Medication Instructions Recorded Confirmed Type atorvastatin 40 mg PO DAILY 08/03/19 06/18/20 History venlafaxine 75 mg PO BID 08/03/19 06/18/20 History albuterol sulfate [ProAir HFA] 2 puff INHALATION PRN PRN 08/21/19 06/18/20 History fluticasone propionate [Flovent 2 inh INHALATION DAILY 08/21/19 06/18/20 History Diskus] glatiramer [Glatopa] See Rx Instructions .ROUTE .COMPLEX 06/18/20 06/18/20 History levothyroxine [Synthroid] 75 mcg PO DAILY 06/18/20 06/18/20 History losartan [Cozaar] 100 mg PO DAILY 06/18/20 06/18/20 History potassium chloride 20 meq PO DAILY 06/18/20 06/18/20 History Allergies Allergy/AdvReac Type Severity Reaction Status Date / Time aspirin [Fiorinal] Allergy Intermediate Verified 10/04/16 13:16 caffeine [Fiorinal] Allergy Intermediate Verified 09/08
--- NOTE | 2020-06-19 08:43 | PC.NURSE ---
Pt. taken down via wheelchair for CTA and US of BLE.
[2020-06-19] MEDS: LOSARTAN POTASSIUM 50 MG TABLET 100 MG PO (09:55)
[2020-06-19] MEDS: VENLAFAXINE HCL 75 MG TABLET PO (09:55)
[2020-06-19] MEDS: ATORVASTATIN 40 MG TABLET PO (09:55)
[2020-06-19] MEDS: POTASSIUM CHLORIDE 20 MEQ TABLET PO (09:56)
--- NOTE | 2020-06-19 11:01 | PM.SD2 ---
Same Day Admit/Disch: HPI History of Present Illness Chief complaint: syncope Narrative: Jannie Peña is a 59 year old female who comes to that hospital for Observation after having a syncopal episode. She states that she was starting to feel really hot. She then went to put water on her face and noticed her face was really red and warm. She started to feel faint and sat on the toilet but then passed out onto the floor. She states her walked into the restroom just as she had fallen to the floor. Pt denies any vision changes, dizziness, hearing changes, difficulty breathing, CP, neck pain, headache at this time. She admits to Psoriasis and Asthma. She states no recent medication changes. Pt has an extensive PMHx. Pt states she is not diabetic but has been informed she is borderline. She does admit to MS but not to Parkinson's which is in her PMHx [facility] Past Medical History Medical History (Updated 06/19/20 @ 09:48 by Rigo Uribe, INSULATION NOZZLEMAN-C) Abdominal pain, other specified site (03/31/15) Acquired hypothyroidism (12/04/13) Acute bronchitis (03/01/14) Acute sinusitis, unspecified (03/01/14) Adverse effects of medication (03/13/12) Allergic rhinitis (09/14/13) Anxiety Asthma Ataxia (09/24/16) Bipolar disorder (10/04/16) Bipolar I disorder, single manic episode, unspecified (11/06/13) BMI greater than 30 (01/02/18) Breast lump (03/29/17) Cigarette smoker (01/04/18) Dizziness (08/24/16) Dyslipidemia Endometrial cancer (05/30/14) Essential hypertension (07/19/11) Hand pain (01/27/18) Hyperlipidemia (10/19/16) Hypertension Hypokalemia (10/19/16) Hypothyroidism (03/31/15) Moderate asthma with exacerbation (03/01/14) Multiple sclerosis Neck pain (03/29/17) Nicotine dependence (01/15/11) Parkinsons disease (09/06/16) Peripheral neuropathy (06/04/13) Postmenopausal vaginal bleeding (03/13/12) Psoriasis (09/14/13) Shoulder bursitis (03/29/17) Shoulder pain (07/01/16) Suprapubic abdominal pain (12/04/13) Tremor (10/04/16) Surgical History Surgical History H/O bariatric surgery gastric sleeve History of back surgery History of carpal tunnel surgery History of hysterectomy Family History Family History Father Hypertension Father Hypertension Mother Family history of type 2 diabetes mellitus Social History Social History Smoking packs per day: 1 Smoking cigarettes per day: 20.0 Smoking status: Heavy tobacco smoker Second hand tobacco smoke exposure: No Alcohol intake: never Substance use: never Substance use type: marijuana Other substance usage details: Denies other drug use. Gender identity (if verbalized by the patient): Female Sexual Orientation (if Verbalized by the Patient): Straight or Heterosexual Spiritual care concerns: No Same Day Admit/Disch: Med Pre-admit Medications Home Medications Medication Instructions Recorded Confirmed Type atorvastatin 40 mg PO DAILY 08/03/19 06/18/20 History venlafaxine 75 mg PO BID 08/03/19 06/18/20 History albuterol sulfate [ProAir HFA] 2 puff INHALATION PRN PRN 08/21/19 06/18/20 History fluticasone propionate [Flovent 2 inh INHALATION DAILY 08/21/19 06/18/20 History Diskus] glatiramer [Glatopa] See Rx Instructions .ROUTE .COMPLEX 06/18/20 06/18/20 History levothyroxine [Synthroid] 75 mcg PO DAILY 06/18/20 06/18/20 History losartan [Cozaar] 100 mg PO DAILY 06/18/20 06/18/20 History potassium chloride 20 meq PO DAILY 06/18/20 06/18/20 History Exam Const: General: cooperative, no acute distress, alert, awake, poor hygiene and tired appearing Nutritional Appearance: obese morbidly obese Orientation/consciousness: oriented to person, oriented to place and patient oriented x3 HENMT: Head: normal to inspection and abrasion (small to the top of forehead) Ears: external ears nor
[2020-06-19 12:01] LABS: Troponin I 29.9 ng/L (0.00-60.4)
--- NOTE | 2020-06-19 12:53 | PC.NURSE ---
Pt discharged to home after being instructed regarding follow up appointment with PCP, medications, Covid 19 precautions. All home meds returned to patient and CG. Pt did not have glassess or cell phone upon admission. KRISTINA
--- NOTE | 2020-06-23 10:01 | PC.NURSE ---
Spouse states they received and understood the discharge instructions. Spouse has no other comments.
== END 2020-06-19 12:45 | disposition home or self-care (01) ==
LOC: CHSED 22:06 → CHS2ND 06-19 05:09
PROVIDERS: Nurse Practitioner Family; Admitting Provider Emergency Medicine; Emergency Provider Emergency Medicine; PCP Family Medicine; Visit Provider Emergency Medicine
DX: R55 Syncope and collapse (principal); E86.1 Hypovolemia; I10 Essential (primary) hypertension; E78.5 Hyperlipidemia, unspecified; E03.9 Hypothyroidism, unspecified; G35 Multiple sclerosis; G20 Parkinson's disease; G62.9 Polyneuropathy, unspecified; R79.89 Other specified abnormal findings of blood chemistry; R06.2 Wheezing; L40.9 Psoriasis, unspecified; F17.200 Nicotine dependence, unspecified, uncomplicated; F41.9 Anxiety disorder, unspecified; F31.9 Bipolar disorder, unspecified; Z90.710 Acquired absence of both cervix and uterus; Z85.42 Personal history of malignant neoplasm of other parts of uterus; Z98.84 Bariatric surgery status; Z79.899 Other long term (current) drug therapy
CPT/HCPCS: 36415; 70450; 71045; 71275; 80048; 80053; 80307; 81001; 82550; 83735; 83880; 84484; 85025; 85380; 85610; 85730; 93005; 93970; 96360; 96361; 96372; 99285; A9270; G0378; J1650; J7030; Q9967

== ENCOUNTER 2020-06-25 13:45 | Outpatient (CLI) | payer MEDICARE, OTHER, SELFPAY ==
--- NOTE | 2020-06-25 13:52 | ECHO_ITS ---
Patient Info Name: Jannie Peña Age: 59 years : 1960 Gender: Female Ht: 67 in Wt: 236 lbs BSA: 2.30 m2 HR: 74 bpm BP: 141 / 74 mmHg Heart Rhythm: Sinus Rhythm Technical Quality: Poor Exam Date: 06/25/2020 1:39 PM Exam Location: [facility] Patient Status: Outpatient Admit Date: 06/25/2020 Staff Ordering Physician: Miguel Gardner MD Hydrodynamicist: Johnna Jacobs RDCS Attending Provider: Miguel Gardner MD Referring Physician: Kendra MILLER; Exam Type: CA echo doppler color flow Study Info Indications R55 - Syncope and collapse Complete two-dimensional, color flow and Doppler transthoracic echocardiogram is performed. Strain analysis performed. Reason for Poor Study: poor echocardiographic windows History/Risk Factors Hypertension: Yes Dyslipidemia: Yes Peripheral Arterial Disease (PAD): No Obesity: Yes Renal Disease: No Date of Last Tobacco Use: 06/25/2020 Diabetes Mellitus: No Tobacco Use: Current - Every Day If Any Current, Tobacco Type: Cigarettes If Current - Every Day \T\ Cigarettes, Amount: Heavy Tobacco Use (>=10/day) Family History: Diabetes Mellitus, Coronary Artery Disease Deep Vein Thrombosis (DVT): None Dialysis: Current Frailty Scale (CSHA): 3: Managing Well Summary 1. Complete two-dimensional, color flow and Doppler transthoracic echocardiogram is performed. 2. Technically suboptimal study due to poor sonographic images. 3. Left ventricular chamber dimension is normal. 4. Left ventricular systolic function is normal, estimated at 55-60%. 5. The left ventricular diastolic function is grade II diastolic dysfunction. 6. E/e' 9 is minimally elevated. 7. Global longitudinal strain is abnormal at -13.3%. 8. No pulmonary hypertension, estimated pulmonary arterial systolic pressure is 21 mmHg. Recommendations * Smoking cessation counseling is recommended for this patient. Left Ventricle E/e' 9 is minimally elevated. Global longitudinal strain is abnormal at -13.3%. Technically suboptimal study due to poor sonographic images. Left ventricular chamber dimension is normal. Left ventricular systolic function is normal, estimated at 55-60%. The left ventricular diastolic function is grade II diastolic dysfunction. Right Ventricle Right ventricular systolic function is normal based on normal TAPSE 2.1 cm. Right ventricular chamber dimension is not well visualized. Left Atria Left atrial chamber dimension is normal. Right Atria Right atrial chamber dimension is normal. Aortic Valve The aortic valve is probable trileaflet. There is no aortic valve stenosis. There is no aortic valve regurgitation. Pulmonic Valve The pulmonic valve is not well visualized. Mitral Valve There is no mitral valve stenosis. There is no mitral valve regurgitation. Tricuspid Valve There is no tricuspid valve regurgitation. No pulmonary hypertension, estimated pulmonary arterial systolic pressure is 21 mmHg. Pericardium/Pleural There is no pericardial effusion. Inferior Vena Cava Normal inferior vena cava with >50% collapse upon inspiration consistent with normal right atrial pressure, 5 mmHg. Aorta The aortic root size at the sinus of Valsalva is normal. Left Ventricular Outflow Tract Name Value Normal
== END 2020-06-25 13:46 | disposition home or self-care (01) ==
LOC: CHSIMG 13:46
PROVIDERS: PCP Family Medicine; Visit Provider Family Medicine
DX: R55 Syncope and collapse (principal)
CPT/HCPCS: 93306

== ENCOUNTER 2020-08-02 20:40 | Emergency (ER) | payer MEDICARE, OTHER, SELFPAY ==
[2020-08-02] VITALS (7 sets, daily range): BP systolic 106–122; BP diastolic 80–97; PULSE 85–96; RESP 20; TEMP 36.7; O2SAT 92–99
--- NOTE | ~2020-08-02 | XR_ITS ---
EXAMINATION: XR chest 1V portable DATE: 08/02/2020 21:14 INDICATION: Shortness of breath. TECHNIQUE: A single frontal view of the chest was obtained. COMPARISON: Chest single view 06/18/2020, chest CT 06/19/2020 FINDINGS: There is mild atelectasis in right lower lung zone. No pleural effusion or pneumothorax. Th e heart size is normal. Calcified left hilar and mediastinal lymph nodes are consistent with old gran ulomatous disease. IMPRESSION: 1. Mild atelectasis in right lower lung zone. Reviewed, dictated and finalized at location A.
--- NOTE | 2020-08-02 20:51 | ECG_ITS ---
Measurements Intervals [place] Rate: 85 P: 71 NV: 164 QRS: 63 QRSD: 109 T: 161 QT: 369 QTc: 440 Interpretive Statements SINUS RHYTHM BORDERLINE ST-T WAVE ABNORMALITY- DIFFUSE LEADS BASELINE ARTIFACT- I, II, III, AVR, AVL, AVF, V4-V6 BORDERLINE ECG Electronically Signed On 08-04-2020 7:02:53 CDT by Javid Allison D.O.
--- NOTE | 2020-08-02 20:53 | ED.SOB ---
HPI - SOB/Dyspnea General Chief Complaint: Shortness of Breath/Dyspnea Stated Complaint: SOB Time Seen by Provider: 08/02/20 21:05 Source: patient and family Mode of arrival: ambulatory Limitations: no limitations History of Present Illness HPI Narrative: Patient comes in with shortness of breath, moderately severe, which started about 10 minutes prior to arrival, suddenly, moderately severe shortness of breath. This shortness of breath has been ongoing. Nothing helped this at home. MD elicited complaint: shortness of breath Pertinent past history: COPD and diabetes Onset (ago): minute(s) Timing: constant Severity: moderate Exacerbating factors: nothing Relieving factors: nothing Known history of: COPD, asthma and diabetes Associated symptoms: wheezing Related Data Home Medications Medication Instructions Recorded Confirmed atorvastatin 40 mg PO DAILY 08/03/19 08/02/20 venlafaxine 75 mg PO DAILY 08/03/19 08/02/20 Flovent Diskus 2 inh INHALATION BID 08/21/19 08/02/20 albuterol sulfate [ProAir HFA] 2 puff INHALATION BID 08/21/19 08/02/20 glatiramer [Glatopa] See Rx Instructions .ROUTE .COMPLEX 06/18/20 08/02/20 levothyroxine [Synthroid] 75 mcg PO DAILY 06/18/20 08/02/20 losartan [Cozaar] 100 mg PO DAILY 06/18/20 08/02/20 potassium chloride 20 meq PO DAILY 06/18/20 08/02/20 venlafaxine 150 mg PO HS 08/02/20 08/02/20 Allergies Allergy/AdvReac Type Severity Reaction Status Date / Time aspirin [Fiorinal] Allergy Intermediate Verified 10/04/16 13:16 caffeine [Fiorinal] Allergy Intermediate Verified 10/04/16 13:16 codeine Allergy Intermediate Verified 06/10/11 12:19 adhesive Allergy Unknown RASH Verified 11/08/17 14:23 butalbital AdvReac Unknown CONFUSION Verified 11/08/17 14:24 Antihistamines Allergy Intermediate Uncoded 06/10/11 12:20 ANTIHISTAMINES Allergy Unknown HIVES Uncoded 11/08/17 14:23 Review of Systems Constitutional: Constitutional: Reports no additional constitutional complaints Eyes: Eyes: Reports no additional eye complaints ENT: Reports system reviewed and no additional complaints, except as documented Cardiovascular: Cardiovascular: Reports no additional cardiovascular complaints Respiratory: Comments: sudden onset shortness of breath Gastrointestinal: Gastrointestinal: Reports no additional gastrointestinal complaints Genitourinary: Genitourinary: Reports no additional female genitourinary complaints Musculoskeletal: Musculoskeletal: Reports no additional musculoskeletal complaints Integumentary/Breasts: Skin/Breast: Reports system reviewed and no additional complaints, except as docu Neurologic: Reports system reviewed and no additional complaints, except as documented Psychiatric: Psychiatric: Reports no additional psychiatric complaints Endocrine: Endocrine: Reports no additional endocrine complaints Hematologic/Lymphatic: Hematologic/Lymphatic: Reports no additional hematologic/lymphatic complaints Allergic/Immunologic: Allergic/Immunologic: Reports no additional allergic/immunologic complaints PMFSH Past Medical History Medical History Abdominal pain, other specified site (03/31/15) Acquired hypothyroidism (12/04/13) Acute bronchitis (03/01/14) Acute sinusitis, unspecified (03/01/14) Adverse effects of medication (03/13/12) Allergic rhinitis (09/14/13) Anxiety Asthma Ataxia (09/24/16) Bipolar disorder (10/04/16) Bipolar I disorder, single manic episode, unspecified (11/06/13) BMI greater than 30 (01/02/18) Breast lump (03/29/17) Cigarette smoker (01/04/18) Dizziness (08/24/16) Dyslipidemia Endometrial cancer (05/30/14) Essential hypertension (07/19/11) Hand pain (01/27/18) Hyperlipidemia (10/19/16) Hypertension Hypokalemia (10/19/16) Hypothyroidism (03/31/15) Moderate asthma with exacerbation (03/01/14) Multiple sclerosis Neck pain (03/29/17) Nicotine dependence (01/15/11) Parkinsons disease (09/06/16) Peripheral neuropathy
[2020-08-02 21:10] LABS: Basophils Absolute Auto 0.06 K/mm3 (0.00-0.10); Basophils Percent Auto 0.9 % (0.0-1.0); Eosinophils Absolute Auto 0.13 K/mm3 (0.02-0.50); Eosinophils Percent Auto 1.9 % (1.0-6.0); Hematocrit 41.8 % (35.0-49.0); Hemoglobin 14.1 g/dL (12.0-15.0); Immature Granulocyte Absolute 0.07 K/mm3 (0.00-0.00); Lymphocytes Absolute Auto 2.75 K/mm3 (1.10-4.50); Lymphocytes Percent Auto 40.9 % (18.0-42.0); Mean Corpuscular HGB Conc 33.7 g/dL (32.0-36.0); Mean Corpuscular Hemoglobin 31.8 pg (27.0-31.0); Mean Corpuscular Volume 94.4 fL (78.0-102.0); Mean Platelet Volume 9.6 fl (9.2-11.8); Monocytes Absolute Auto 0.14 K/mm3 (0.10-0.90); Monocytes Percent Auto 2.1 % (2.0-11.0); Neutrophils Absolute Auto 3.6 K/mm3 (1.7-7.2); Neutrophils Percent Auto 53.2 % (50.0-70.0); Platelet Count Result 316 K/mm3 (150-420); Red Blood Count 4.43 M/mm3 (4.20-5.40); Red Cell Distribution Width 13.7 % (11.6-14.4); White Blood Count 6.7 K/mm3 (4.8-10.8)
[2020-08-02] MEDS: IPRATROPIUM 0.5 MG/ALBUTEROL SULFATE 2.5 MG AMPUL.NEB 3 ML INHALATION (21:13)
[2020-08-02] MEDS: methylPREDNISolone SOD SUCC 125 MG VIAL IV PUSH (21:13)
[2020-08-02 21:31] LABS: Alanine Aminotransferase 35 U/L (14-59); Albumin Level 3.6 g/dL (3.4-5.0); Alkaline Phosphatase 127 U/L (46-116); Anion Gap 13 mmol/L (8-16); Aspartate Amino Transferase 25 U/L (15-37); Bilirubin,Total 0.4 mg/dL (0.00-1.00); Blood Urea Nitrogen 20 mg/dL (7-18); Calcium 8.9 mg/dL (8.5-10.1); Carbon Dioxide 25 mmol/L (21-32); Chloride 98 mmol/L (98-108); Estimated CRCL calculation 49 ml/min; Estimated Glomerular Filt Rate 39; Glucose 102 mg/dL (70-99); NT Pro B Type Natriuretic Pept 71 pg/mL (0-125); Osmolality Calculated 284 mOsm/kg (285-295); Potassium 4.3 mmol/L (3.5-5.1); Sodium 136 mmol/L (136-145); Total Protein 7.6 g/dL (6.4-8.2); Troponin I 8.5 ng/L (0.00-60.4)
[2020-08-02 21:34] LABS: D Dimer 0.61 mg/L (0.19-0.50)
[2020-08-02 21:34] LABS: Magnesium 1.8 mg/dL (1.8-2.4)
== END 2020-08-02 22:07 | disposition left against medical advice (07) ==
PROVIDERS: Emergency Provider Emergency Medicine; PCP Family Medicine
DX: I26.99 Other pulmonary embolism without acute cor pulmonale (principal); J44.9 Chronic obstructive pulmonary disease, unspecified; F17.200 Nicotine dependence, unspecified, uncomplicated
CPT/HCPCS: 36415; 71045; 80053; 83735; 83880; 84484; 85025; 85380; 93005; 96374; 99283; 99284; J2930

== ENCOUNTER 2020-08-08 11:27 | Outpatient (CLI) | payer MEDICARE, OTHER, SELFPAY ==
[2020-08-08 11:43] LABS: Basophils Absolute Auto 0.06 K/mm3 (0.00-0.10); Basophils Percent Auto 0.8 % (0.0-1.0); Eosinophils Absolute Auto 0.25 K/mm3 (0.02-0.50); Eosinophils Percent Auto 3.2 % (1.0-6.0); Hematocrit 42.6 % (35.0-49.0); Hemoglobin 14.3 g/dL (12.0-15.0); Immature Granulocyte Absolute 0.04 K/mm3 (0.00-0.00); Immature Granulocyte Percent A 0.5 % (0.0-0.0); Lymphocytes Absolute Auto 1.96 K/mm3 (1.10-4.50); Mean Corpuscular HGB Conc 33.6 g/dL (32.0-36.0); Mean Corpuscular Hemoglobin 31.2 pg (27.0-31.0); Mean Corpuscular Volume 92.8 fL (78.0-102.0); Mean Platelet Volume 9.2 fl (9.2-11.8); Monocytes Absolute Auto 0.41 K/mm3 (0.10-0.90); Monocytes Percent Auto 5.2 % (2.0-11.0); Neutrophils Absolute Auto 5.1 K/mm3 (1.7-7.2); Neutrophils Percent Auto 65.3 % (50.0-70.0); Platelet Count Result 321 K/mm3 (150-420); Red Blood Count 4.59 M/mm3 (4.20-5.40); Red Cell Distribution Width 13.6 % (11.6-14.4); White Blood Count 7.8 K/mm3 (4.8-10.8)
[2020-08-08 12:37] LABS: Alanine Aminotransferase 41 U/L (14-59); Albumin Level 3.4 g/dL (3.4-5.0); Alkaline Phosphatase 128 U/L (46-116); Anion Gap 9 mmol/L (8-16); Aspartate Amino Transferase 18 U/L (15-37); Bilirubin,Total 0.4 mg/dL (0.00-1.00); Blood Urea Nitrogen 15 mg/dL (7-18); Calcium 9.1 mg/dL (8.5-10.1); Carbon Dioxide 28 mmol/L (21-32); Chloride 103 mmol/L (98-108); Estimated Glomerular Filt Rate 46; Glucose 183 mg/dL (70-99); Osmolality Calculated 295 mOsm/kg (285-295); Potassium 4.5 mmol/L (3.5-5.1); Sodium 140 mmol/L (136-145); Total Protein 7.4 g/dL (6.4-8.2)
== END 2020-08-08 11:28 | disposition home or self-care (01) ==
LOC: CHSLAB 11:31
PROVIDERS: PCP Family Medicine; Visit Provider Family Medicine
DX: R79.89 Other specified abnormal findings of blood chemistry (principal); I10 Essential (primary) hypertension
CPT/HCPCS: 36415; 80053; 85025; 85380

== ENCOUNTER 2020-08-15 12:47 | Outpatient (CLI) | payer MEDICARE, OTHER, SELFPAY ==
[2020-08-15 13:00] VITALS: PULSE 85; O2SAT 96
[2020-08-15 13:08] VITALS: PULSE 105; O2SAT 96
--- NOTE | 2020-08-15 13:14 | HOMEO2EVAL ---
Evaluation was performed at [facility] Home Oxygen Evaluation RC: Home Oxygen (O2) Evaluation Start: 08/15/20 13:09 Freq: Status: Active Protocol: RPE Activity Type Activity Date Activity User E-Sign Co-Sign Detail Recorded Client Recorded Date Recorded By Document 08/15/20 13:00 PRISCILA [id number] 08/15/20 13:13 SJB Document 08/15/20 13:08 SJB [id number] 08/15/20 13:13 SJB 08/15/20 08/15/20 13:00 13:08 Home O2 Evaluation Test Phase Resting Exercise Oxygen Delivery Room Air Room Air Pulse Oximetry (90-100 %) 96 96 Pulse Rate (60-100 beats/min) 85 105 H Activity Tolerance Fair Rating of Perceived Dyspnea (PD) +1 Mild, +2 Mild, Some Noticeable to Difficulty, the Participant Noticeable to but Not to an the Observer Observer Rate of Perceived Exertion (PE) 11 Fairly light 13 Somewhat Hard Ambulation Distance (feet) 750 Home Oxygen Evaluation Comments PT TOLERATED FAIRLY WELL. ONLY COMPLAINTS WERE OF BEING EXTREMELY HOT AND LEGS GETTING TIRED. SP02S WERE WNL OF 95-97% ON ROOM AIR AND HR RANGED BETWEEN 85-108. Treatment Charges O2 Evaluation - Outpatient
== END 2020-08-15 12:48 | disposition home or self-care (01) ==
LOC: CHSCARD 12:49
PROVIDERS: PCP Family Medicine; Visit Provider Family Medicine
DX: R06.02 Shortness of breath (principal)
CPT/HCPCS: 94060; 94618; 94726; 94729

== ENCOUNTER 2020-11-06 10:39 | Outpatient (CLI) | payer MEDICARE, SELFPAY ==
[2020-11-10 02:52] LABS: Vitamin D 25 Hydroxy 7 ng/mL (30-100)
== END 2020-11-06 10:40 | disposition home or self-care (01) ==
LOC: CHSLAB 10:43
PROVIDERS: PCP Family Medicine
DX: E55.9 Vitamin D deficiency, unspecified (principal)
CPT/HCPCS: 36415; 82306

== ENCOUNTER 2021-01-17 09:46 | Outpatient (CLI) | payer MEDICARE, OTHER, SELFPAY ==
[2021-01-17 10:08] LABS: Estimated Glomerular Filt Rate 43
== END 2021-01-17 09:47 | disposition home or self-care (01) ==
LOC: CHSIMG 09:49
PROVIDERS: PCP Family Medicine
DX: G35 Multiple sclerosis (principal)
CPT/HCPCS: 99199

== ENCOUNTER 2021-02-24 21:43 | Emergency (ER) | payer MEDICARE, OTHER, SELFPAY ==
[2021-02-24 22:06] VITALS: BP 113/86; PULSE 102; RESP 22; TEMP 35.9; O2SAT 95
[2021-02-24 22:23] LABS: Basophils Absolute Auto 0.12 K/mm3 (0.00-0.10); Basophils Percent Auto 1.1 % (0.0-1.0); Eosinophils Absolute Auto 0.29 K/mm3 (0.02-0.50); Eosinophils Percent Auto 2.6 % (1.0-6.0); Hematocrit 42.4 % (35.0-49.0); Hemoglobin 13.6 g/dL (12.0-15.0); Immature Granulocyte Absolute 0.32 K/mm3 (0.00-0.00); Immature Granulocyte Percent A 2.8 % (0.0-0.0); Lymphocytes Absolute Auto 2.13 K/mm3 (1.10-4.50); Lymphocytes Percent Auto 18.9 % (18.0-42.0); Mean Corpuscular HGB Conc 32.1 g/dL (32.0-36.0); Mean Corpuscular Hemoglobin 31.3 pg (27.0-31.0); Mean Corpuscular Volume 97.5 fL (78.0-102.0); Mean Platelet Volume 9.5 fl (9.2-11.8); Monocytes Absolute Auto 0.53 K/mm3 (0.10-0.90); Monocytes Percent Auto 4.7 % (2.0-11.0); Neutrophils Absolute Auto 7.9 K/mm3 (1.7-7.2); Neutrophils Percent Auto 69.9 % (50.0-70.0); Platelet Count Result 359 K/mm3 (150-420); Red Blood Count 4.35 M/mm3 (4.20-5.40); Red Cell Distribution Width 14.2 % (11.6-14.4); White Blood Count 11.3 K/mm3 (4.8-10.8)
--- NOTE | 2021-02-24 22:39 | ED.SOB ---
HPI - SOB/Dyspnea General Chief Complaint: Shortness of Breath/Dyspnea Stated Complaint: amb Time Seen by Provider: 02/24/21 21:47 Source: patient, family and RN notes reviewed Mode of arrival: EMS Limitations: no limitations History of Present Illness HPI Narrative: Pt had recurrence of hot feeling , SOB and had to be laid on the floor and resuscitated via spousal CPR. No seizure seen, but the pt had fecal incontinence. no vomiting, fever or chest pain. Several prior similar episodes with inconclusive clinical workups and medical specialists review. Pt wants to sign AMA and depart for home. MD elicited complaint: shortness of breath Pertinent past history: other (psoriasis, MS, ) Onset (ago): hour(s) (1) Timing: improved Severity: similar to previous episodes Exacerbating factors: nothing Relieving factors: oxygen, rest and cool air Associated symptoms: denies other symptoms Treatment prior to arrival: oxygen Related Data Home Medications Medication Instructions Recorded Confirmed atorvastatin 40 mg PO DAILY 08/03/19 08/02/20 venlafaxine 75 mg PO DAILY 08/03/19 08/02/20 Flovent Diskus 2 inh INHALATION BID 08/21/19 08/02/20 albuterol sulfate [ProAir HFA] 2 puff INHALATION BID 08/21/19 08/02/20 glatiramer [Glatopa] See Rx Instructions .ROUTE .COMPLEX 06/18/20 08/02/20 levothyroxine [Synthroid] 75 mcg PO DAILY 06/18/20 08/02/20 losartan [Cozaar] 100 mg PO DAILY 06/18/20 08/02/20 potassium chloride 20 meq PO DAILY 06/18/20 08/02/20 venlafaxine 150 mg PO HS 08/02/20 08/02/20 Allergies Allergy/AdvReac Type Severity Reaction Status Date / Time aspirin [Fiorinal] Allergy Intermediate Verified 10/04/16 13:16 caffeine [Fiorinal] Allergy Intermediate Verified 10/04/16 13:16 codeine Allergy Intermediate Verified 06/10/11 12:19 adhesive Allergy Unknown RASH Verified 11/08/17 14:23 butalbital AdvReac Unknown CONFUSION Verified 11/08/17 14:24 Antihistamines Allergy Intermediate Uncoded 06/10/11 12:20 ANTIHISTAMINES Allergy Unknown HIVES Uncoded 10/02/18 14:23 Review of Systems Review of Systems: All systems reviewed & are unremarkable except as noted in HPI and below PMFSH Past Medical History Medical History Abdominal pain, other specified site (03/31/15) Acquired hypothyroidism (12/04/13) Acute bronchitis (03/01/14) Acute sinusitis, unspecified (03/01/14) Adverse effects of medication (03/13/12) Allergic rhinitis (09/14/13) Anxiety Asthma Ataxia (09/24/16) Bipolar disorder (10/04/16) Bipolar I disorder, single manic episode, unspecified (11/06/13) BMI greater than 30 (01/02/18) Breast lump (03/29/17) Cigarette smoker (01/04/18) Dizziness (08/24/16) Dyslipidemia Endometrial cancer (05/30/14) Essential hypertension (07/19/11) Hand pain (01/27/18) Hyperlipidemia (10/19/16) Hypertension Hypokalemia (10/19/16) Hypothyroidism (03/31/15) Moderate asthma with exacerbation (03/01/14) Multiple sclerosis Neck pain (03/29/17) Nicotine dependence (01/15/11) Parkinsons disease (09/06/16) Peripheral neuropathy (06/04/13) Postmenopausal vaginal bleeding (03/13/12) Psoriasis (09/14/13) Shoulder bursitis (03/29/17) Shoulder pain (07/01/16) Suprapubic abdominal pain (12/04/13) Tremor (10/04/16) Surgical History Surgical History H/O bariatric surgery gastric sleeve History of back surgery History of carpal tunnel surgery History of hysterectomy Family History Family History Father Hypertension Father Hypertension Mother Family history of type 2 diabetes mellitus Social History Social History Smoking packs per day: 1 Smoking cigarettes per day: 20.0 Smoking status: Current every day smoker Second hand tobacco smoke exposure: No Alcohol intake: never Alcohol use details: denies Vincent
[2021-02-24 22:42] LABS: Alanine Aminotransferase 42 U/L (14-59); Albumin Level 3.6 g/dL (3.4-5.0); Alkaline Phosphatase 116 U/L (46-116); Anion Gap 13 mmol/L (8-16); Aspartate Amino Transferase 29 U/L (15-37); Bilirubin,Total 0.3 mg/dL (0.00-1.00); Blood Urea Nitrogen 16 mg/dL (7-18); Calcium 9.5 mg/dL (8.5-10.1); Carbon Dioxide 26 mmol/L (21-32); Chloride 98 mmol/L (98-108); Estimated CRCL calculation 36 ml/min; Estimated Glomerular Filt Rate 27; Glucose 172 mg/dL (70-99); Osmolality Calculated 289 mOsm/kg (285-295); Potassium 4.1 mmol/L (3.5-5.1); Sodium 137 mmol/L (136-145); Total Protein 7.6 g/dL (6.4-8.2); Troponin I 30.7 ng/L (0.00-60.4)
--- NOTE | 2021-02-24 22:52 | PC.NURSE ---
pt left AMA. pt stated, you got blood. i don't need anything else. i am fine. i want to go home. this staff member presented pt with an AMA form and requested that the pt sign. pt refused to sign AMA form. pt left the ER in a wheelchair per her request. pt stated, get me a wheelchair. i don't want to do all this walking. this staff member gave the pt's the pt's personal belongings which included a plastic bag of medication bottles. pt's left the ER in a wheelchair that was being pushed by the pt's .
== END 2021-02-24 22:59 | disposition left against medical advice (07) ==
PROVIDERS: Emergency Provider Emergency Medicine; PCP Family Medicine
DX: R55 Syncope and collapse (principal)
CPT/HCPCS: 36415; 80053; 84484; 85025; 93005; 99282; 99284

== ENCOUNTER 2021-02-26 12:15 | Outpatient (CLI) | payer MEDICARE, OTHER, SELFPAY | END 2021-02-26 12:16 | disposition home or self-care (01) | LOC: CHSCARD 12:17 | PROVIDERS: PCP Family Medicine; Visit Provider Family Medicine | DX: R06.02 Shortness of breath (principal); R55 Syncope and collapse; Z53.9 Procedure and treatment not carried out, unspecified reason | CPT/HCPCS: 99199 ==

== ENCOUNTER 2021-03-03 12:26 | Outpatient (CLI) | payer MEDICARE, OTHER, SELFPAY ==
--- NOTE | ~2021-03-03 | XR_ITS ---
EXAMINATION: XR chest 2V 03/03/2021 12:50 INDICATION: Shortness of breath, syncope and collapse PROCEDURE: 2 view chest COMPARISON: Comparison to multiple prior studies sequentially, with oldest reviewed study dated 03/04. FINDINGS: The lungs are clear. The cardiomediastinal silhouette is within normal limits. There are no pleural effusions. There is no pneumothorax suspected. IMPRESSION: 1: NO ACUTE CARDIOPULMONARY DISEASE. Reviewed, dictated and finalized at location B. NESS INFORMATION ANALYST
[2021-03-03 12:35] VITALS: PULSE 76; O2SAT 98
[2021-03-03 12:45] VITALS: PULSE 108; O2SAT 96
--- NOTE | 2021-03-03 12:57 | HOMEO2EVAL ---
Evaluation was performed at [facility] Home Oxygen Evaluation RC: Home Oxygen (O2) Evaluation Start: 03/03/21 12:55 Freq: Status: Active Protocol: RPE Activity Type Activity Date Activity User E-Sign Co-Sign Detail Recorded Client Recorded Date Recorded By Document 03/03/21 12:35 SJB [id number] 03/03/21 12:57 SJB Document 03/03/21 12:45 SJB [id number] 03/03/21 12:57 SJB 03/03/21 03/03/21 12:35 12:45 Home O2 Evaluation Test Phase Resting Exercise Pulse Oximetry (90-100 %) 98 96 Pulse Rate (60-100 beats/min) 76 108 H Activity Tolerance Good Rating of Perceived Dyspnea (PD) +2 Mild, Some Difficulty, Noticeable to the Observer Rate of Perceived Exertion (PE) 12 Ambulation Distance (feet) 1,045 Ambulation Distance (meters) 318.50 Home Oxygen Evaluation Comments Will begin home Pt walked 02 eval now. pushing w/c on room air. Agatha well. Walked approx 1045 ft with Sp02 remaining at 96 % and above. PLB encouraged. Treatment Charges O2 Evaluation - Outpatient
--- NOTE | 2021-03-03 13:00 | ECG_ITS ---
Measurements Intervals [place] Rate: 84 P: 76 UT: 167 QRS: 74 QRSD: 112 T: 79 QT: 369 QTc: 437 Interpretive Statements SINUS RHYTHM INTRAVENTRICULAR CONDUCTION DELAY ST-T WAVE ABNORMALITY IN ANTEROLATERAL LEADS- CONSIDER ISCHEMIA ABNORMAL ECG Electronically Signed On 03-03-2021 16:24:06 WARE CARRIER by Javid Allison D.O.
--- NOTE | 2021-03-05 10:08 | WPDHOLTEREM ---
Holter/Event Monitor Holter/Event Monitor Date of procedure: 03/03/21 Holter/Event Procedure: 24 Hr Holter Monitor Indications: Syncope Conclusion: 1. 24 hour holter monitor on 03/03/21. 2. Underlying rhythm is sinus rhythm. HR range 50-125 bpm; average HR 88 bpm. 3. There are 57 premature supraventricular complexes and 5 supraventricular couplets. No supraventricular tachycardia. 4. There are 59 premature ventricular complexes. No ventricular tachycardia. 5. No sinoatrial or atrioventricular blocks. No significant pauses greater than 2 seconds. 6. No symptoms available for correlation.
== END 2021-03-03 12:27 | disposition home or self-care (01) ==
LOC: CHSCARD 12:27
PROVIDERS: PCP Family Medicine; Visit Provider Family Medicine
DX: R06.02 Shortness of breath (principal); R55 Syncope and collapse
CPT/HCPCS: 71046; 93005; 93225; 93226; 94618

== ENCOUNTER 2021-04-01 10:37 | Outpatient (CLI) | payer MEDICARE, SELFPAY ==
[2021-04-01 10:47] LABS: Basophils Percent Auto 1.1 % (0.0-1.0); Eosinophils Absolute Auto 0.43 K/mm3 (0.02-0.50); Eosinophils Percent Auto 4.9 % (1.0-6.0); Hematocrit 41.5 % (35.0-49.0); Hemoglobin 13.7 g/dL (12.0-15.0); Immature Granulocyte Absolute 0.05 K/mm3 (0.00-0.00); Immature Granulocyte Percent A 0.6 % (0.0-0.0); Lymphocytes Absolute Auto 2.56 K/mm3 (1.10-4.50); Lymphocytes Percent Auto 29.3 % (18.0-42.0); Mean Corpuscular Hemoglobin 31.6 pg (27.0-31.0); Mean Corpuscular Volume 95.6 fL (78.0-102.0); Mean Platelet Volume 9.4 fl (9.2-11.8); Monocytes Absolute Auto 0.52 K/mm3 (0.10-0.90); Monocytes Percent Auto 5.9 % (2.0-11.0); Neutrophils Absolute Auto 5.1 K/mm3 (1.7-7.2); Neutrophils Percent Auto 58.2 % (50.0-70.0); Platelet Count Result 310 K/mm3 (150-420); Red Blood Count 4.34 M/mm3 (4.20-5.40); Red Cell Distribution Width 14.2 % (11.6-14.4); White Blood Count 8.8 K/mm3 (4.8-10.8)
[2021-04-01 11:37] LABS: Alanine Aminotransferase 53 U/L (14-59); Albumin Level 3.8 g/dL (3.4-5.0); Alkaline Phosphatase 96 U/L (46-116); Anion Gap 9 mmol/L (8-16); Aspartate Amino Transferase 31 U/L (15-37); Bilirubin,Total 0.4 mg/dL (0.00-1.00); Blood Urea Nitrogen 16 mg/dL (7-18); Calcium 9.6 mg/dL (8.5-10.1); Carbon Dioxide 30 mmol/L (21-32); Chloride 103 mmol/L (98-108); Estimated Glomerular Filt Rate 40; Glucose 182 mg/dL (70-99); Osmolality Calculated 300 mOsm/kg (285-295); Potassium 4.7 mmol/L (3.5-5.1); Sodium 142 mmol/L (136-145); Thyroid Stimulating Hormone 2.75 uIU/mL (0.36-3.74); Total Protein 7.4 g/dL (6.4-8.2)
[2021-04-01 16:00] LABS: Hemoglobin A1C 7.2 % (<5.7)
== END 2021-04-01 10:38 | disposition home or self-care (01) ==
LOC: CHSLAB 10:39
PROVIDERS: PCP Family Medicine; Visit Provider Family Medicine
DX: E03.8 Other specified hypothyroidism (principal); I10 Essential (primary) hypertension; R73.9 Hyperglycemia, unspecified
CPT/HCPCS: 36415; 80053; 83036; 84443; 85025

== ENCOUNTER 2021-04-13 10:47 | Outpatient (CLI) | payer MEDICARE, OTHER, SELFPAY ==
--- NOTE | 2021-04-13 10:53 | EST_ITS ---
Patient Info Name: Jannie Peña Age: 60 years : 1960 Gender: Female Ht: 67 in Wt: 225 lbs BSA: 2.24 m2 Exam Date: 04/13/2021 12:20 PM Exam Location: [facility] Patient Status: Outpatient Admit Date: 04/13/2021 Staff Ordering Physician: Javid Allison DO Attending Provider: Javid Allison DO Exam Type: CA stress heather w NM History/Risk Factors Hypertension: Yes Dyslipidemia: Yes Peripheral Arterial Disease (PAD): No Obesity: Yes Renal Disease: No Date of Last Tobacco Use: 06/25/2020 Diabetes Mellitus: No Tobacco Use: Current - Every Day If Any Current, Tobacco Type: Cigarettes If Current - Every Day \T\ Cigarettes, Amount: Heavy Tobacco Use (>=10/day) Family History: Diabetes Mellitus, Coronary Artery Disease Deep Vein Thrombosis (DVT): None Dialysis: Current Frailty Scale (CSHA): 3: Managing Well Summary 1. 1. Negative lexiscan stress test for ischemic ST changes by ECG criteria. 2. 2. Stable hemodynamics throughout the test. 3. 3. Nuclear scan to follow and will be reported separately. Please correlate with it. 4. 4. Patient informed of the above results. Protocol: LEXISCAN Stress ECG Details Stage: REST Duration (min): 0 min : 54 sec HR (bpm): 68 SBP (mmHg): 128 DBP (mmHg): 80 Stage: REST Duration (min): 12 min : 36 sec HR (bpm): 76 SBP (mmHg): 128 DBP (mmHg): 80 Stage: STAGE 1 Duration (min): 0 min : 6 sec HR (bpm): 77 SBP (mmHg): 128 DBP (mmHg): 80 Stage: RECOVERY Duration (min): 0 min : 53 sec HR (bpm): 92 SBP (mmHg): 128 DBP (mmHg): 80 Stage: RECOVERY Duration (min): 1 min : 53 sec HR (bpm): 87 SBP (mmHg): 147 DBP (mmHg): 81 Stage: RECOVERY Duration (min): 2 min : 53 sec HR (bpm): 85 SBP (mmHg): 135 DBP (mmHg): 81 Stage: RECOVERY Duration (min): 3 min : 53 sec HR (bpm): 89 SBP (mmHg): 125 DBP (mmHg): 85 Stage: RECOVERY Duration (min): 4 min : 53 sec HR (bpm): 72 SBP (mmHg): 131 DBP (mmHg): 85 Stage: RECOVERY Duration (min): 5 min : 53 sec HR (bpm): 74 SBP (mmHg): 144 DBP (mmHg): 87 Stage: RECOVERY Duration (min): 6 min : 4 sec HR (bpm): 75 SBP (mmHg): 144 DBP (mmHg): 87 Rest HR: 76 bpm Peak HR: 96 bpm Rest Sys BP: 128 mmHg Peak Sys BP: 147 mmHg Max Pred HR: 162 bpm % Max Pred HR: 59 % Target HR: 138 bpm Max RPP: 14,112 bpm*mmHg Termination Reason: Completed protocol Cardiac Symptoms: Shortness of breath Total Time: 0 min : 6 sec Rest Conley BP: 80 mmHg Peak Conley BP: 81 mmHg Total Dose: 0.4 mg Resting ECG Sinus rhythm. Stress ECG No ST changes. Arrhythmias None. Report Signatures
--- NOTE | 2021-04-13 17:40 | WPDCARIOSTRE ---
Nuclear Stress Test INDICATIONS Indications: GRIGGS PROCEDURE Procedure Performed: Myocardial Perf Spect-Multi Procedure: Patient underwent a lexiscan stress test and immediately as injected with 33.4 mCi of cardiolyte. Multiple tomographic images were obtained. These are of adequate quality. There are no perfusion defects with stress imaging. A separate resting images were obtained after patient was injected with 10.8 mCi of cardiolyte. Multiple tomographic images were obtained. These are of adequate quality. There are no perfusion defects with rest imaging. CONCLUSION Conclusion: 1. Normal myocardial perfusion imaging demonstrating no perfusion defects with stress or rest imaging. 2. No reversible ischemia. 3. Left ventriculogram demonstrates normal measured ejection fraction of 63% with no wall motion abnormalities. 4. TID score is normal at 1.07.
== END 2021-04-13 10:48 | disposition home or self-care (01) ==
LOC: CHSIMG 10:49
PROVIDERS: PCP Family Medicine; Visit Provider Internal Medicine Cardiovascular Disease
DX: R55 Syncope and collapse (principal); R06.00 Dyspnea, unspecified
CPT/HCPCS: 78452; 93017; A9502; J2785

== ENCOUNTER 2021-07-12 10:17 | Emergency (ER) | payer MEDICARE, OTHER, SELFPAY ==
--- NOTE | ~2021-07-12 | CT_ITS ---
EXAMINATION: CT abdomen pelvis wo con DATE: 07/12/2021 11:58 INDICATION: Right flank pain TECHNIQUE: Computed tomography (CT) of the abdomen and pelvis was performed without intravenous contr ast. The dose-length product (DLP) was 1367.59 mGy-cm. Automated exposure control and iterative recon struction technique were employed. COMPARISON: 12/18/2013 FINDINGS: The lung bases are clear. The heart size is normal. A gastric lap band is noted. The liver is diffusely low in attenuation when compared with the spleen, consistent with hepatic steatosis. Pun ctate calcifications of the liver and spleen are consistent with old granulomatous disease. The pancr eas, gallbladder, and adrenal glands are normal. The kidneys are unremarkable. No stones are identifi ed in the kidneys, ureters, or bladder. There is no hydronephrosis or hydroureter. No pathologically enlarged abdominal or pelvic lymph nodes are identified. There is no free intraperitoneal gas or evid ence of bowel obstruction. A moderate volume of colonic stool is present. There are changes of anteri or and posterior fusion from L4 through S1. IMPRESSION: 1. No CT correlate for the patient's symptoms. Reviewed, dictated and finalized at location A.
[2021-07-12 10:27] VITALS: BP 134/85; PULSE 76; RESP 14; TEMP 36.3; O2SAT 96
[2021-07-12 11:22] LABS: Basophils Absolute Auto 0.07 K/mm3 (0.00-0.10); Basophils Percent Auto 0.7 % (0.0-1.0); Eosinophils Absolute Auto 0.41 K/mm3 (0.02-0.50); Eosinophils Percent Auto 4.3 % (1.0-6.0); Hematocrit 43.2 % (35.0-49.0); Hemoglobin 14.4 g/dL (12.0-15.0); Immature Granulocyte Absolute 0.05 K/mm3 (0.00-0.00); Immature Granulocyte Percent A 0.5 % (0.0-0.0); Lymphocytes Absolute Auto 1.49 K/mm3 (1.10-4.50); Lymphocytes Percent Auto 15.8 % (18.0-42.0); Mean Corpuscular HGB Conc 33.3 g/dL (32.0-36.0); Mean Corpuscular Hemoglobin 31.9 pg (27.0-31.0); Mean Corpuscular Volume 95.8 fL (78.0-102.0); Mean Platelet Volume 10.1 fl (9.2-11.8); Monocytes Percent Auto 5.3 % (2.0-11.0); Neutrophils Absolute Auto 6.9 K/mm3 (1.7-7.2); Neutrophils Percent Auto 73.4 % (50.0-70.0); Platelet Count Result 325 K/mm3 (150-420); Red Blood Count 4.51 M/mm3 (4.20-5.40); Red Cell Distribution Width 13.7 % (11.6-14.4); White Blood Count 9.5 K/mm3 (4.8-10.8)
[2021-07-12] MEDS: SODIUM CHLORIDE 0.9% IV 1,000 ML 999 ML IV CONT (11:25)
[2021-07-12] MEDS: MORPHINE SULFATE (*CRX) 4 MG/ML INJ 2 MG IV PUSH (11:26)
[2021-07-12] MEDS: PANTOPRAZOLE SODIUM IV 40 MG VIAL IV PUSH (11:27)
[2021-07-12] MEDS: ONDANSETRON INJ 4 MG/2 ML VIAL IV PUSH ×2 (11:27→13:43)
[2021-07-12 11:38] LABS: Alanine Aminotransferase 56 U/L (14-59); Albumin Level 3.7 g/dL (3.4-5.0); Alkaline Phosphatase 91 U/L (46-116); Anion Gap 9 mmol/L (8-16); Aspartate Amino Transferase 34 U/L (15-37); Bilirubin,Total 0.5 mg/dL (0.00-1.00); Blood Urea Nitrogen 24 mg/dL (7-18); Calcium 9.3 mg/dL (8.5-10.1); Carbon Dioxide 26 mmol/L (21-32); Chloride 102 mmol/L (98-108); Estimated CRCL calculation 56 ml/min; Estimated Glomerular Filt Rate 44; Glucose 158 mg/dL (70-99); Lipase 63 U/L (73-393); Osmolality Calculated 291 mOsm/kg (285-295); Potassium 4.5 mmol/L (3.5-5.1); Sodium 137 mmol/L (136-145); Total Protein 7.9 g/dL (6.4-8.2)
[2021-07-12 11:43] LABS: Lactic Acid Reflex 1.3 mmol/L (0.4-2.0)
--- NOTE | 2021-07-12 12:09 | PC.NURSE ---
Pt assisted to BR for urine sample.
[2021-07-12 12:23] LABS: Add Urine Microscopic? NO; Appearance Urine Clear (Clear); Bilirubin Urine Negative (Negative); Blood Urine Negative (Negative); Color Urine Yellow (Yellow); Glucose Urine UA Negative (Negative); Ketones Urine Negative (Negative); Leukocyte Esterase Ur Negative LEU/UL (Negative); Nitrate Urine Negative (Negative); Protein Urine Negative (Negative); Specific Grav Ur 1.025 (1.010-1.020); pH Urine 5.5 (5.0-8.0)
--- NOTE | 2021-07-12 13:29 | ED.ABDPAIN ---
HPI - Abdominal Pain General Chief Complaint: Abdominal Pain Stated Complaint: pain lower abdomin to lower back Time Seen by Provider: 07/12/21 10:21 Source: patient and RN notes reviewed Mode of arrival: ambulatory Limitations: no limitations History of Present Illness MD elicited complaint: abdominal pain Onset (ago): day(s) (1) Pain Consistency: constant Location: suprapubic Severity: mild Pain scale (0-10): 4 Quality: cramping, aching and dull Radiation: back Exacerbating factors: nothing Relieving factors: nothing Associated symptoms: nausea Related Data Home Medications Medication Instructions Recorded Confirmed atorvastatin 40 mg tablet 40 mg PO DAILY 08/03/19 03/09/21 venlafaxine 75 mg tablet 75 mg PO DAILY 08/03/19 03/09/21 albuterol sulfate 90 mcg/actuation 2 puff inhalation BID 08/21/19 03/09/21 aerosol inhaler (ProAir HFA) fluticasone propionate 100 2 inh inhalation BID 08/21/19 03/09/21 mcg/actuation blister powder for inhalation (Flovent Diskus) glatiramer 40 mg/mL subcutaneous See Rx Instructions .Route .COMPLEX 06/18/20 03/09/21 syringe (Glatopa) levothyroxine 75 mcg tablet 75 mcg PO DAILY 06/18/20 03/09/21 (Synthroid) potassium chloride 20 mEq 20 meq PO DAILY 06/18/20 03/09/21 tablet,extended release(part/cryst) losartan 100 mg tablet (Cozaar) 50 mg PO DAILY 03/09/21 03/09/21 spironolactone 25 mg tablet 25 mg PO DAILY 03/09/21 03/09/21 venlafaxine 75 mg tablet 75 mg PO DAILY 03/09/21 03/09/21 Allergies Allergy/AdvReac Type Severity Reaction Status Date / Time aspirin [Fiorinal] Allergy Intermediate Unknown Verified 07/12/21 10:31 caffeine [Fiorinal] Allergy Intermediate Unknown Verified 07/12/21 10:31 codeine Allergy Intermediate Unknown Verified 07/12/21 10:31 adhesive Allergy Unknown RASH Verified 07/12/21 10:31 butalbital AdvReac Unknown CONFUSION Verified 07/12/21 10:31 Antihistamines Allergy Intermediate Unknown Uncoded 07/12/21 10:31 ANTIHISTAMINES Allergy Unknown HIVES Uncoded 07/12/21 10:31 Review of Systems Review of Systems: All systems reviewed & are unremarkable except as noted in HPI and below Constitutional: Constitutional: Reports no additional constitutional complaints Eyes: Eyes: Reports no additional eye complaints ENT: Reports system reviewed and no additional complaints, except as documented Cardiovascular: Cardiovascular: Reports no additional cardiovascular complaints Respiratory: Respiratory: Reports no additional respiratory complaints Gastrointestinal: Gastrointestinal: Reports abdominal pain and Reports nausea Genitourinary: Genitourinary: Reports no additional female genitourinary complaints Musculoskeletal: Musculoskeletal: Reports no additional musculoskeletal complaints Integumentary/Breasts: Skin/Breast: Reports system reviewed and no additional complaints, except as docu Neurologic: Reports system reviewed and no additional complaints, except as documented Psychiatric: Psychiatric: Reports no additional psychiatric complaints Endocrine: Endocrine: Reports no additional endocrine complaints Hematologic/Lymphatic: Hematologic/Lymphatic: Reports no additional hematologic/lymphatic complaints Allergic/Immunologic: Allergic/Immunologic: Reports no additional allergic/immunologic complaints PMFSH Past Medical History Medical History Abdominal pain, other specified site (03/31/15) Acquired hypothyroidism (12/04/13) Acute bronchitis (03/01/14) Acute sinusitis, unspecified (03/01/14) Adverse effects of medication (03/13/12) Allergic rhinitis (09/14/13) Anxiety Asthma Ataxia (09/24/16) Bipolar disorder (10/04/16) Bipolar I disorder, single manic episode, unspecified (11/06/13) BMI greater than 30 (01/02/18) Breast lump (03/29/17) Cigarette smoker (01/04/18) Dizziness (08/24/16) Dyslipidemia Endometrial cancer (05/30/14) Essential hypertension (07/19/11) Hand pain (01/27/18) Hyperlip
--- NOTE | 2021-07-12 13:41 | PC.NURSE ---
Pt in hallway, walked to nurses station agitated, requesting more pain medication.
[2021-07-12] MEDS: MORPHINE SULFATE (*CRX) 2 MG/ML INJ IV PUSH (13:43)
[2021-07-12 13:51] VITALS: BP 139/91; PULSE 78; RESP 20; TEMP 37.1; O2SAT 94
== END 2021-07-12 14:16 | disposition home or self-care (01) ==
PROVIDERS: Emergency Provider Emergency Medicine; PCP Family Medicine
DX: R10.9 Unspecified abdominal pain (principal); E03.9 Hypothyroidism, unspecified; F17.200 Nicotine dependence, unspecified, uncomplicated; E78.5 Hyperlipidemia, unspecified; I10 Essential (primary) hypertension; G35 Multiple sclerosis
CPT/HCPCS: 74176; 80053; 81003; 83605; 83690; 85025; 96361; 96374; 96375; 96376; 99284; C9113; J2270; J2405; J7030

== ENCOUNTER 2021-10-30 11:14 | Outpatient (CLI) | payer MEDICARE, SELFPAY ==
[2021-10-30 11:48] LABS: Hemoglobin A1C 7.3 % (<5.7)
[2021-10-30 12:03] LABS: Basophils Absolute Auto 0.08 K/mm3 (0.00-0.10); Eosinophils Absolute Auto 0.29 K/mm3 (0.02-0.50); Eosinophils Percent Auto 3.8 % (1.0-6.0); Hematocrit 41.2 % (35.0-49.0); Hemoglobin 13.6 g/dL (12.0-15.0); Immature Granulocyte Absolute 0.04 K/mm3 (0.00-0.00); Immature Granulocyte Percent A 0.5 % (0.0-0.0); Lymphocytes Absolute Auto 2.44 K/mm3 (1.10-4.50); Lymphocytes Percent Auto 31.7 % (18.0-42.0); Mean Corpuscular Hemoglobin 31.6 pg (27.0-31.0); Mean Corpuscular Volume 95.6 fL (78.0-102.0); Mean Platelet Volume 10.1 fl (9.2-11.8); Monocytes Absolute Auto 0.43 K/mm3 (0.10-0.90); Monocytes Percent Auto 5.6 % (2.0-11.0); Neutrophils Absolute Auto 4.4 K/mm3 (1.7-7.2); Neutrophils Percent Auto 57.4 % (50.0-70.0); Platelet Count Result 306 K/mm3 (150-420); Red Blood Count 4.31 M/mm3 (4.20-5.40); Red Cell Distribution Width 13.8 % (11.6-14.4); White Blood Count 7.7 K/mm3 (4.8-10.8)
[2021-10-30 12:05] LABS: Anion Gap 6 mmol/L (8-16); Blood Urea Nitrogen 18 mg/dL (7-18); Calcium 9.3 mg/dL (8.5-10.1); Carbon Dioxide 30 mmol/L (21-32); Chloride 101 mmol/L (98-108); Estimated Glomerular Filt Rate 43; Glucose 175 mg/dL (70-99); Osmolality Calculated 289 mOsm/kg (285-295); Potassium 4.6 mmol/L (3.5-5.1); Sodium 137 mmol/L (136-145); Thyroid Stimulating Hormone 2.05 uIU/mL (0.36-3.74)
== END 2021-10-30 11:15 | disposition home or self-care (01) ==
LOC: CHSLAB 11:22
PROVIDERS: PCP Family Medicine; Visit Provider Family Medicine
DX: E03.8 Other specified hypothyroidism (principal); I10 Essential (primary) hypertension; R73.01 Impaired fasting glucose
CPT/HCPCS: 36415; 80048; 83036; 84443; 85025

== ENCOUNTER 2022-06-17 13:14 | Outpatient (CLI) | payer MEDICARE, SELFPAY ==
[2022-06-17 13:28] LABS: Basophils Absolute Auto 0.08 K/mm3 (0.00-0.10); Basophils Percent Auto 1.1 % (0.0-1.0); Eosinophils Absolute Auto 0.48 K/mm3 (0.02-0.50); Eosinophils Percent Auto 6.5 % (1.0-6.0); Hematocrit 40.8 % (35.0-49.0); Hemoglobin 13.4 g/dL (12.0-15.0); Immature Granulocyte Absolute 0.03 K/mm3 (0.00-0.00); Immature Granulocyte Percent A 0.4 % (0.0-0.0); Lymphocytes Absolute Auto 2.26 K/mm3 (1.10-4.50); Lymphocytes Percent Auto 30.7 % (18.0-42.0); Mean Corpuscular HGB Conc 32.8 g/dL (32.0-36.0); Mean Corpuscular Volume 94.4 fL (78.0-102.0); Mean Platelet Volume 9.6 fl (9.2-11.8); Monocytes Percent Auto 4.1 % (2.0-11.0); Neutrophils Absolute Auto 4.2 K/mm3 (1.7-7.2); Neutrophils Percent Auto 57.2 % (50.0-70.0); Platelet Count Result 336 K/mm3 (150-420); Red Blood Count 4.32 M/mm3 (4.20-5.40); Red Cell Distribution Width 13.2 % (11.6-14.4); White Blood Count 7.4 K/mm3 (4.8-10.8)
[2022-06-17 13:45] LABS: Appearance Urine Clear (Clear); Bilirubin Urine Negative (Negative); Blood Urine Negative (Negative); Color Urine Yellow (Yellow); Glucose Urine UA Negative (Negative); Ketones Urine Negative (Negative); Leukocyte Esterase Ur Negative (Negative); Nitrate Urine Negative (Negative); Protein Urine Negative (Negative); Urobilinogen Urine 0.2 mg/dL (0.2-1.0)
[2022-06-17 13:48] LABS: Add Urine Microscopic? NO
[2022-06-17 13:51] LABS: Creatinine Urine 159.22 mg/dL (40-278); MALB Creatinine Ratio 8.1 mg/g (0-30); Microalbumin Urine Random < 13.0 mg/L
[2022-06-17 14:22] LABS: Alanine Aminotransferase 65 U/L (14-59); Albumin Level 3.8 g/dL (3.4-5.0); Alkaline Phosphatase 83 U/L (46-116); Anion Gap 7 mmol/L (8-16); Aspartate Amino Transferase 54 U/L (15-37); Bilirubin,Total 0.4 mg/dL (0.00-1.00); Blood Urea Nitrogen 17 mg/dL (7-18); Calcium 9.3 mg/dL (8.5-10.1); Carbon Dioxide 30 mmol/L (21-32); Chloride 102 mmol/L (98-108); Estimated Glomerular Filt Rate 46; Glucose 194 mg/dL (70-99); Osmolality Calculated 294 mOsm/kg (285-295); Potassium 4.9 mmol/L (3.5-5.1); Sodium 139 mmol/L (136-145); Thyroid Stimulating Hormone 1.32 uIU/mL (0.36-3.74); Total Protein 7.4 g/dL (6.4-8.2)
== END 2022-06-17 13:15 | disposition home or self-care (01) ==
LOC: CHSLAB 13:15
PROVIDERS: PCP Family Medicine; Visit Provider Family Medicine
DX: E11.9 Type 2 diabetes mellitus without complications (principal); E03.9 Hypothyroidism, unspecified
CPT/HCPCS: 36415; 80053; 81003; 82043; 83036; 84443; 85025

== ENCOUNTER 2023-04-26 10:31 | Outpatient (CLI) | payer MEDICARE, SELFPAY ==
[2023-04-26 10:48] LABS: Basophils Absolute Auto 0.11 K/mm3 (0.00-0.10); Basophils Percent Auto 1.3 % (0.0-1.0); Eosinophils Absolute Auto 0.43 K/mm3 (0.02-0.50); Eosinophils Percent Auto 4.9 % (1.0-6.0); Hematocrit 42.3 % (35.0-49.0); Hemoglobin 13.9 g/dL (12.0-15.0); Immature Granulocyte Absolute 0.05 K/mm3 (0.00-0.00); Immature Granulocyte Percent A 0.6 % (0.0-0.0); Lymphocytes Absolute Auto 2.84 K/mm3 (1.10-4.50); Lymphocytes Percent Auto 32.6 % (18.0-42.0); Mean Corpuscular HGB Conc 32.9 g/dL (32-36); Mean Corpuscular Hemoglobin 30.8 pg (27.0-31.0); Mean Corpuscular Volume 93.6 fL (78.0-102.0); Mean Platelet Volume 9.2 fl (9.2-11.8); Monocytes Absolute Auto 0.58 K/mm3 (0.10-0.90); Monocytes Percent Auto 6.7 % (2.0-11.0); Neutrophils Percent Auto 53.9 % (50.0-70.0); Platelet Count Result 321 K/mm3 (150-420); Red Blood Count 4.52 M/mm3 (4.20-5.40); Red Cell Distribution Width 13.8 % (11.6-14.4); White Blood Count 8.7 K/mm3 (4.8-10.8)
[2023-04-26 10:58] LABS: Hemoglobin A1C 7.4 % (<5.7)
[2023-04-26 11:21] LABS: Alanine Aminotransferase 42 U/L (14-59); Albumin Level 3.6 g/dL (3.4-5.0); Alkaline Phosphatase 112 U/L (46-116); Anion Gap 8 mmol/L (8-16); Aspartate Amino Transferase 26 U/L (15-37); Bilirubin,Total 0.4 mg/dL (0.00-1.00); Blood Urea Nitrogen 15 mg/dL (7-18); Calcium 9.2 mg/dL (8.5-10.1); Carbon Dioxide 30 mmol/L (21-32); Chloride 104 mmol/L (98-108); Cholesterol 188 mg/dL (0-200); Estimated Glomerular Filt Rate 50; Glucose 156 mg/dL (70-99); HDL Direct 42 mg/dL (40-60); LDL Cholesterol Calculated 107 mg/dL (<130); Osmolality Calculated 297 mOsm/kg (285-295); Sodium 142 mmol/L (136-145); Thyroid Stimulating Hormone 1.57 uIU/mL (0.36-3.74); Total Protein 7.1 g/dL (6.4-8.2); Triglycerides 193 mg/dL (0-150)
[2023-04-26 16:17] LABS: Creatinine Urine 187.91 mg/dL (40-278); Microalbumin Urine Random 18.9 mg/L
== END 2023-04-26 10:32 | disposition home or self-care (01) ==
LOC: CHSLAB 10:34
PROVIDERS: PCP Family Medicine; Visit Provider Family Medicine
DX: I10 Essential (primary) hypertension (principal); E11.9 Type 2 diabetes mellitus without complications; E78.2 Mixed hyperlipidemia; E03.8 Other specified hypothyroidism
CPT/HCPCS: 36415; 80053; 80061; 82043; 83036; 84443; 85025

== ENCOUNTER 2023-11-16 14:07 | Outpatient (CLI) | payer MEDICARE, SELFPAY ==
[2023-11-16 14:23] LABS: Basophils Percent Auto 1.1 % (0.0-1.0); Eosinophils Absolute Auto 0.39 K/mm3 (0.02-0.50); Eosinophils Percent Auto 4.4 % (1.0-6.0); Hematocrit 41.3 % (35.0-49.0); Hemoglobin 14.1 g/dL (12.0-15.0); Immature Granulocyte Absolute 0.04 K/mm3 (0.00-0.00); Immature Granulocyte Percent A 0.5 % (0.0-0.0); Lymphocytes Absolute Auto 2.39 K/mm3 (1.10-4.50); Mean Corpuscular HGB Conc 34.1 g/dL (32-36); Mean Corpuscular Hemoglobin 31.5 pg (27.0-31.0); Mean Corpuscular Volume 92.4 fL (78.0-102.0); Mean Platelet Volume 9.2 fl (9.2-11.8); Monocytes Absolute Auto 0.46 K/mm3 (0.10-0.90); Monocytes Percent Auto 5.2 % (2.0-11.0); Neutrophils Absolute Auto 5.47 K/mm3 (1.70-7.20); Neutrophils Percent Auto 61.8 % (50.0-70.0); Platelet Count Result 321 K/mm3 (150-420); Red Blood Count 4.47 M/mm3 (4.20-5.40); Red Cell Distribution Width 13.2 % (11.6-14.4); White Blood Count 8.9 K/mm3 (4.8-10.8)
[2023-11-16 14:32] LABS: Hemoglobin A1C 6.5 % (<5.7)
[2023-11-16 15:01] LABS: Anion Gap 5 mmol/L (4-12); Blood Urea Nitrogen 14 mg/dL (7-18); Calcium 9.2 mg/dL (8.5-10.1); Carbon Dioxide 31 mmol/L (21-32); Chloride 102 mmol/L (98-108); Estimated Glomerular Filt Rate 41; Glucose 147 mg/dL (70-99); Osmolality Calculated 289 mOsm/kg (285-295); Potassium 4.8 mmol/L (3.5-5.1); Sodium 138 mmol/L (136-145)
== END 2023-11-16 14:08 | disposition home or self-care (01) ==
PROVIDERS: PCP Family Medicine; Visit Provider Family Medicine
DX: E11.9 Type 2 diabetes mellitus without complications (principal)
CPT/HCPCS: 36415; 80048; 83036; 85025

== ENCOUNTER 2024-09-07 13:13 | Outpatient (CLI) | payer MEDICARE, OTHER, SELFPAY ==
--- OUTSIDE RECORDS SUMMARY | 2024-09-07 13:29 | XMS_ITS | Encounter Summary ---
Author Organization [employer] Address 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
--- OUTSIDE RECORDS SUMMARY | 2024-09-07 13:29 | XMS_ITS | Encounter Summary ---
Author Organization [employer] Address 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
--- OUTSIDE RECORDS SUMMARY | 2024-09-07 13:29 | XMS_ITS | Encounter Summary ---
Author Organization [employer] Address 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
--- OUTSIDE RECORDS SUMMARY | 2024-09-07 13:29 | XMS_ITS | Encounter Summary ---
Author Organization [employer] Address [address] [place] [address] Care Team Providers Care Crime Scene Photographer Name Role Phone Jose Gutierrez MD Primary Care Provider [phone] Encounter Details Date Type Department Care Team (Latest Contact Info) Description 01/17/1998 Outpatient Historical HIS [facility] Arti Whitt MD NO ADDRESS ON FILE Unspecified spontaneous without mention of complication (Primary Dx) Social History Tobacco Use Types Packs/Day Years Used Date Smoking Tobacco: Never Assessed Comments Unknown Sex and Gender Information Value Date Recorded Sex Assigned at Not on file 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
--- OUTSIDE RECORDS SUMMARY | 2024-09-07 13:29 | XMS_ITS | Clinical Summary ---
Author Organization [facility] Address [facility] [place] [address] Care Team Providers Care Tankroom Worker Name Role Phone Unavailable Primary Care Provider Unavailabl e Social History Tobacco Use Types Packs/Day Years Used Date Smoking Tobacco: Never Assessed Comments Unknown Sex and Gender Information Value Date Recorded Sex Assigned at Not on file Legal Sex Female 9:05 PM CDT Gender Identity Not on file Sexual Orientation Not on file Plan of Treatment Health Maintenance Due Date Last Done Comments Cervical Cancer Screening Pa p Smear (Age 30 to 64) Every 3 Years 1960 Colorectal Cancer Screening Colonoscopy (10 Years) 1960 Annual Physical 1965 Hepatitis C 1980 DTaP, Tdap and Td Vaccines ( 1 - Tdap) 1981 Cervical Cancer Screening Pa p with HPV Testing (Age 30 to 64) Every 5 Years 1992 Cervical Cancer Screening with HPV 1992 Mammogram Screening 2002 Pneumococcal Vaccine: 50+ Ye ars (1 of 1 - PCV) 2012 Zoster Vaccines (1 of 2) 2012 COVID-19 Vaccine (2023-2 5 season) 2023 RSV Immunization or 60+ Years (1 - 1-dose 75+ series) 2037 Meningococcal B Vaccine Aged Out No l onger eligible based on patient's age to complete this topic Meningococcal Vaccine Aged Out No tahmina luz eligible based on patient's age to complete this topic RSV Immunizations Under 20 Months Aged Out No longer eligible based on patient's age to complete this topic
--- OUTSIDE RECORDS SUMMARY | 2024-09-07 13:29 | XMS_ITS | Encounter Summary ---
Author Organization [employer] Address 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
--- OUTSIDE RECORDS SUMMARY | 2024-09-07 13:29 | XMS_ITS | Clinical Summary ---
Author Organization [facility] Address [address] [place] [address] Phone Care Team Providers Care Composition Worker Name Role Phone Jose Gutierrez MD Primary Care Provider [phone] Allergies Active Allergy Reactions Criticality Noted Date Comments Rlwvfrhqzx-Dlmjouk-Jztwkmvk Confusion Low 09/09/19 17 Diphenhydramine Hcl Rash Low 08/31/2010 Tylenol-Codeine Solution Unknown 09/08/2016 Medications levothyroxine 75 mcg tablet Take 75 mcg by mouth daily insurance coordinator. Active losartan (COZAAR) 100 mg tablet Take 1 Tablet (100 mg) by mouth daily Please contact patient's primary care physician for any refill requests.. 30 Tablet 7 Active methyl salicylate-ment hol (BENGAY) 15-10 % Cream Apply to affected area 3 times daily. 7 Active polyethylene glycol (MIRALAX) 17 gram Powder in Packet Take 1 Packet (17 Grams) by mouth daily. 7 Active sennosides-docu sate sodium (SENNA-S) 8.6-50 mg tablet Take 2 Tablets by mouth daily. 7 Active venlafaxine (EFFEXOR) 75 mg tablet Take 1 Tablet (75 mg) by mouth 2 times daily Please contact patient's primary care physician for any refill requests.. 60 Tablet 7 Active hydroCHLOROthia zide 25 mg tablet Take 1 Tablet (25 mg) by mouth daily Please contact patient's primary care physician for any refill requests.. 30 Tablet 7 Active vitamin B complex-vitamin C-folic acid (NEPHROCAP) 1 mg Capsule Take 1 Capsule by mouth daily Please contact patient's primary care physician for any refill requests.. 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 Family History Medical History Relation Name Comments Depression Father Depression Mother Relation Name Status Comments Father Mother Social History Tobacco Use Types Packs/Day Years Used Date Smoking Tobacco: Every Day Cigarettes 1 35 Smokeless Tobacco: Never Alcohol Use Standard Drinks/Week Comments No 0 (1 standard drink = 0.6 oz pur e alcohol) Comments Unknown Sex and Gender Information Value Date Recorded Sex Assigned at Not on file 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 Gender Identity Not on file Sexual Orientation Not on file Last Filed Vital Signs Vital Sign Reading Time Taken Comments Blood Pressure 132/83 09/17/2016 5:17 AM CDT Pulse 58 09/17/2016 5:17 AM CDT Temperature 36.6 C (97.8 F) 09/17/2016 5:17 AM CDT Respiratory Rate 18 09/17/2016 5:17 AM CDT Oxygen Saturation 99% 09/17/2016 5:17 AM CDT Inhaled Oxygen Concentration - - Weight 95.7 kg (211 lb) 09/11/2016 5:03 PM CDT Height 172.7 cm (5' 8) 09/11/2016 4:57 PM CDT Body Mass Index 32.08 09/11/2016 4:57 PM CDT Plan of Treatment Health Maintenance Due Date Last Done Comments DTAP/TDAP/TD VACCINES (1 - Tdap) 1981 HPV/Cotest (21-29) 09/13/1983 CERVICAL CANCER SCREENING 1992 HPV/Cotest (30-65) 1992 PAP SMEAR 1992 BREAST CANCER SCREENING 2002 COLORECTAL SCREENING 09/13/2007 Colorectal Cancer Screening 09/13/2007 FIT-DNA Q 3 years 09/13/2007 FIT/FOBT Q 1 year 09/13/2007 Flex Sig/CT Colonography Q 5 years 09/13/2007 ZOSTER VACCINE (1 of 2) 2012 INFLUENZA VACCINE (#1) 2024 RSV VACCINE (60+ or ) (1 - 1-dose 75+ series) 2037 Insurance MEDICARE PART A AND B [employer] Member Subscriber Plan / Payer ( fective 2020-) Name:Jannie Peña Relation to Subscriber:Self Name:Jannie Peña Payer ID:Not on file Group ID:Not on file Type: Address: [place] [id number] MEDICARE PART A AND B [employer] Advance Directives For more information, please contact: [phone] * Full Code (Latest Code Status on File) Date Activated Date Inactivated Comments 09/11/2016 5:03 PM 09/17/2016 6:16 PM * Full Code Date Activated Date Inactivated Comments 09/08/2016 11:58 PM 09/11/2016 5:03 PM Care Teams Composition Worker Relationship Specialty Start Date End Date Jose Gutierrez MD [facility] [place] [address] PCP - General Family Practice 09/09/16
--- OUTSIDE RECORDS SUMMARY | 2024-09-07 13:29 | XMS_ITS | Encounter Summary ---
Author Organization [facility] Address 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
--- OUTSIDE RECORDS SUMMARY | 2024-09-07 13:29 | XMS_ITS | Encounter Summary ---
Author Organization [facility] Address 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
--- OUTSIDE RECORDS SUMMARY | 2024-09-07 13:29 | XMS_ITS | Continuity of Care Document ---
Author Organization [facility] Address [address] [place] [address] Phone Care Team Providers Care Manager Msw Name Role Phone Shahnaz FANGLeyla PATINO Liya Unavailable Unavailable Procedures Procedure Date Office/outpatient visit,est, mod 2008 X-ray exam lower spine 2-3 views 2008 Office/outpatient visit,est, mod 2008 Office/outpatient visit,est, mod 2007 X-ray exam lower spine 2-3 views 2007 Office/outpatient visit,est, mod 2007 X-ray exam lower spine 2-3 views 2007 Office/outpatient visit,est, mod 2007 X-ray exam lower spine 2-3 views 2007 Postop followup visit X-ray exam lower spine 2-3 views 2007 Postop followup visit X-ray exam lower spine 2-3 views 2007 Lumbar spine fus, pstr intrbdy sngl Lumb spine fus, pstr intrbdy ea add Lumbar spine fusion, posterolateral Spine fusion, each add'lvertebra 2007 Insert spine seg fix, post, 3-6 seg Apply spinal prosthetic device 08 Lumbar spine fus, pstr intrbdy sngl Lumb spine fus, pstr intrbdy ea add Lumbar spine fusion, posterolateral Spine fusion, each add'lvertebra 2007 Insert spine seg fix, post, 3-6 seg Apply spinal prosthetic device 08 Antibx Ordered One Hour Prior To Surg Ja Antibx Was Given One Hour Prior Surg Feb Cefazolin Cefuroxime Antibx Ordered And Given Antibx Were Given W/in 4 Hours Prior To Surg Discontinue Antibx Within 24 Hours Of Vincent rg VTE Prophylaxis Order Given 24 Hours Sabina or Surg Office/outpatient visit,est, mod 2006 Inject, spine, lumbar/sacral Fluoro For Spine Injections Inject, spine, lumbar/sacral Fluoro For Spine Injections Office/outpatient visit,est, mod 2006 Office/outpatient visit,new, mod 2006 X-ray exam lower spine 2-3 views 2006 Advance Directives Directive Yes / No Effective Date File Name No Information Encounters Encounter Description Practice Location Reason(s) For Visit Diagnoses Date Provider Providers Copied on Encounter Office/outpat ient visit,est, [facility], [address] [place] [address], [id number], tel:[phone] [facility] No Information 9 Shahnaz Nickerson. [address] [place] [address], [id number] , [place]. tel:[phone] Referring Provider: Liya Dinh, [address] [place] [address], [address] . tel:[phone] Office/outpat ient visit,[facility], [facility], [address] [place] [address], [id number], tel:[phone] [facility] No Information 9 Shahnaz Nickerson. [address] [place] [address], [id number] , . tel:[phone] Referring Provider: Liya Dinh, [address] [facility] [address], [place], [address] . tel:[phone] Office/outpat ient visit,est, [facility], [address] [facility] [address], [place], [place], [id number], [place] [phone] [facility] No Information 3 8 Shahnaz Nickerson. [address] [facility], [facility] [address], [place], [place], [id number] , [place]. tel: [phone] Office/outpat ient visit,est, [facility], [address] [facility] [address], [place], [place], [id number], [place] [phone] [facility] No Information 8 Es Hare. [address] [facility], [facility] [address], [place], [place], [id number] , [place]. tel: [phone] Office/outpat ient visit,est, [facility], [address] [address], [place], [place], [id number], [place] tel:[phone] [facility] No Information 8 Es Hare. [address] [facility], [facility] [address], [place], [place], [id number] , [place]. tel: [phone] [facility], [address] [address], [place], [place], [id number], [place] tel:[phone] [facility] No Information 8 Es Hare. [address] [facility], [facility] [address], [place], [place], [id number] , [place]. tel: [phone] [facility], [address] [address], [place], [place], [id number], [place] tel:[phone] [facility] No Information 0200 8 Shahnaz Nickerson. [address] [facility], [facility] [address], [place], [place], [id number] , [place]. tel: [phone] Referring Provider: Payam Barrientos, [address] [facility] [address], [place], [address] . tel:[phone] [facility], [address] [address], [place], [place], [id number], [place] tel:[phone] [facility] No Information 8 Peymanleyla Liya. [address] [address], [place], [place], [id number] , [place]. tel: [phone] Referring Provider: Payam Barrientos, [address] [address], [place], [address] . tel:[phone] [facility], [address] [address], [place], [place], [id number], [place] tel:[phone] [facility] No Information 8 Es Hare. [address] [address], [place], [place], [id number] , [place]. tel: [phone] Office/outpat ient visit,est, mod [facility], [address] [address], [place], [place], [id number], [place] tel:[phone] [facility] No Information 7 Es Hare. [address] [address], [place], [place], [id number] , [place]. tel: [phone] [facility], [address] [place] [address], [id number], [place] [phone] [facility] No Information 7 Es Hare. [address] [address], [place], [place], [id number] , [place]. tel: [phone] [facility], [address], [id number], [place] [phone] [facility] No Information 7 Es Hare. [address] [facility], [address], [place], [place], [id number] , [place]. tel: [phone] Office/outpat ient visit,[facility], [facility], [address] [address], [place], [place], [id number], tel:[phone] [facility] No Information 7 Es Hare. [address] [facility], [facility] [address], [place], [place], [id number] , [place]. tel: [phone] Office/outpat ient visit,[facility], [facility], [address] [address], [place], [place], [id number], [phone] [facility] No Information Es Payam. [address] [facility], [address] [address], [place], [place], [id number] , [place]. tel: [phone] Family History Family Member Type Diagnosis Age At Onset No Information Payers Payer name Insurance type Covered democrat ID Authoriza tion(s) Medicare [place] WPS Part B MB [id number] For Life BL [id number] Social History Type Description Quantity Date Captured Comments Sex Female Smoking Status No Information Chief Complaint And Reason For Visit No Information Reason For Referral Reason For Referral No Information History Of Present Illness Encounter Date Complaint History Of Prese nt Illness No Information Functional Status Date Functional Assessmen t No Information Instructions Date Instruction Additional Infor mation No Information Assessments Type Assessment Date No Information Patient Care Teams Name Effective Dates (start - stop) Status Members No Information
--- OUTSIDE RECORDS SUMMARY | 2024-09-07 13:29 | XMS_ITS | Encounter Summary ---
Author Organization [facility] Address 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
--- OUTSIDE RECORDS SUMMARY | 2024-09-07 13:29 | XMS_ITS | Continuity of Care Document ---
Author Organization [facility] Address [address] [place] [address] [address] Phone Care Team Providers Care Director Oracle Database Name Role Phone Administrative, Provider Unavailable Unavail able Procedures Procedure Date MRI of lumbar spine Advance Directives Directive Yes / No Effective Date File Name No Information Encounters Encounter Description Practice Location Reason(s) For Visit Diagnoses Date Provider Providers Copied on Encounter [facility], [address] [place] [address], [id number], tel:[phone] [facility] No Information 6 Administrative Provider. [address] [place] [address], [id number], . tel:[phone] [facility], [address] [place] [address], [id number], tel:[phone] [facility] No Information 200 7 Es Hare. [address] [place] [address], [id number], [place]. tel:[phone] Referring Provider: Payam Barrientos, [address] [place] [address], [address] . tel:[phone] Family History Family Member Type Diagnosis Age At Onset No Information Payers Payer name Insurance type Covered alliance party ID Authoriza tion(s) Medicare [place] WPS Part B MB [id number] For Life BL [id number] Social History Type Description Quantity Date Captured [...]
--- OUTSIDE RECORDS SUMMARY | 2024-09-07 13:29 | XMS_ITS | Clinical Summary ---
Author Organization [facility] Address [address] [place] [address] Care Team Providers Care Skilled Nursing Case Manager Name Role Phone Unavailable Primary Care Provider Unavailabl e Source Comments [facility],non-owned Affiliates and Associated Physician Practices is amultiple site organization consisting of ambulatory clinics and hospital sitesin [place], [place], [place] and [place]. This disclosure is being madepursuant to the Care Everywhere program and may not contain all information available regarding this patient. Last updated 17.[facility] Allergies Active Allergy Reactions Criticality Noted Date Comments Diphenhydramine Hcl Rash Low 08/31/2010 F[facility] Psychiatric 08/31/2010 Medications * Be aware that medications may not be up to date on this document. Alwaysverify current medications with the patient. amlodipine (NORVASC) 10 MG tablet Take 10 mg by mouth daily. Active rosuvastatin (CRESTOR) 10 MG tablet Take 10 mg by mouth daily. Active lithium carbonate (ESKALITH) 150 MG capsule Take 150 mg by mouth 2 times daily. Active venlafaxine XR 24hr (EFFEXOR XR) 37.5 MG capsule Take 37.5 mg by mouth daily with breakfast. Active ziprasidone (GEODON) 20 MG capsule Take 20 mg by mouth at bedtime. Active Active Problems Problem Noted Date Diagnosed Date HTN (hypertension) 08/31/2010 Bipolar disorder 08/31/2010 Overview (11/07/2014): Psoriasis 08/31/2010 High blood cholesterol 08/31/2010 Arthritis 08/31/2010 Vitamin D deficiency 08/31/2010 Overview (11/07/2014): Morbid obesity 02/13/2009 Family History Medical History Relation Name Comments Diabetes Brother CAD (Coronary Artery Disease) Father Hypercholesterolemia Father Hypertension Father Psoriasis Father Diabetes Mother Hypercholesterolemia Mother Hypercholesterolemia Sister Relation Name Status Comments Brother Father Mother Sister Social History Tobacco Use Types Packs/Day Years Used Date Smoking Tobacco: Some Days Cigarettes Smokeless Tobacco: Never Alcohol Use Standard Drinks/Week Comments No 0 (1 standard drink = 0.6 oz pur e alcohol) Comments Unknown Sex and Gender Information Value Date Recorded Sex Assigned at Not on file 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 Gender Identity Not on file Sexual Orientation Not on file Last Filed Vital Signs Vital Sign Reading Time Taken Comments Blood Pressure 158/90 12/08/2011 11:40 AM CDT Pulse 75 12/08/2011 11:40 AM CDT Temperature 36.3 C (97.3 F) 08/31/2010 10:51 AM CDT Respiratory Rate 18 12/08/2011 11:40 AM CDT Oxygen Saturation - - Inhaled Oxygen Concentration - - Weight 91.2 kg (201 lb) 12/08/2011 11:40 AM CDT Height 172.7 cm (5' 8) 12/08/2011 11:40 AM CDT Body Mass Index 30.56 12/08/2011 11:40 AM CDT Plan of Treatment Health Maintenance Due Date Last Done Comments COLOGUARD (AGES 45-75) - COL ON CA SCREENING 1962 COLON MONITORING 1962 COLONOSCOPY - COLON CA SCREENING 1962 CT COLONOGRAPHY - COLON CA SCREENING 1962 Colorectal Cancer Screening 1962 FIT - COLON CA SCREENING 1962 FLEX SIG - COLON CA SCREENING 1962 MAMMOGRAM 1962 HIV SCREENING 1977 HEPATITIS C SCREENING 09/07/1980 DTAP/TDAP/TD VACCINES (1 - Tdap) 1981 PNEUMOCOCCAL VACCINE 50+ (1 of 2 - PCV) 1981 ZOSTER VACCINE (1 of 2) 2012 COVID-19 VACCINE ( - 2023-2 5 season) 2023 INFLUENZA VACCINE (#1) 2024 Respiratory Syncytial Virus (RSV) Vaccine Pt: or over 60 yrs (1 - 1-dose 75+ series) 2037 HEPATITIS B VACCINE Aged Out No longe r eligible based on patient's age to complete this topic HIB VACCINE Aged Out No longer eligi ble based on patient's age to complete this topic HPV VACCINE Aged Out No longer eligi ble based on patient's age to complete this topic MENINGOCOCCAL (Group B) VACC INE SHARED DECISION-MAKING Aged Out No longer eligibl e based on patient's age to complete this topic MENINGOCOCCAL GROUPS A/C/Y/W VACCINE Aged Out No longer eligible b ased on patient's age to complete this topic Insurance MEDICARE [facility]
--- OUTSIDE RECORDS SUMMARY | 2024-09-07 13:29 | XMS_ITS | Encounter Summary ---
Author Organization [facility] Address [address] [place] [address] Care Team Providers Care Channel Program Manager Name Role Phone Pcp, Unknown Primary Care Provider Unavailabl e Unknown, Provider Primary Care Provider Unavaila ble Unknown, Provider Primary Care Provider Unavaila ble Reason for Visit * Reason Onset Date Comments Appointment 06/05/2009 Patient called t o reschedule appointment for June 16, 2009. 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
[2024-09-07 13:39] LABS: Hematocrit 42.4 % (35.0-49.0); Hemoglobin 13.9 g/dL (12.0-15.0); Immature Granulocyte Percent A 0.3 % (0.0-0.0); Lymphocytes Absolute Auto 2.22 K/mm3 (1.10-4.50); Mean Corpuscular HGB Conc 32.8 g/dL (32-36); Mean Corpuscular Hemoglobin 30.7 pg (27.0-31.0); Mean Corpuscular Volume 93.6 fL (78.0-102.0); Nucleated Red Blood Cells Absolute Auto 0.00 K/mm3 (0.00-0.00); Nucleated Red Blood Cells Perc 0.0 % (0-0.0); Platelet Count Result 337 K/mm3 (150-420); Red Blood Count 4.53 M/mm3 (4.20-5.40); White Blood Count 7.7 K/mm3 (4.8-10.8)
[2024-09-07 13:41] LABS: Add Urine Microscopic? YES; Appearance Urine Clear (Clear); Glucose Urine UA Negative (Negative); Leukocyte Esterase Ur Negative LEU/UL (Negative); Nitrate Urine Negative (Negative); Specific Grav Ur 1.020 (1.010-1.020)
[2024-09-07 14:18] LABS: Alanine Aminotransferase 21 U/L (6-35); Albumin Level 4.4 g/dL (3.5-5.1); Alkaline Phosphatase 91 U/L (38-126); Anion Gap 3 mmol/L (4-12); Aspartate Amino Transferase 26 U/L (14-36); Bilirubin,Total 0.7 mg/dL (0.2-1.3); Blood Urea Nitrogen 16 mg/dL (7-17); Calcium 9.3 mg/dL (8.4-10.2); Carbon Dioxide 28 mmol/L (22-30); Chloride 108 mmol/L (98-107); Cholesterol 156 mg/dL (0-200); Estimated Glomerular Filt Rate 46; Glucose 134 mg/dL (65-110); HDL Direct 41 mg/dL; Osmolality Calculated 291 mOsm/kg (285-295); Potassium 4.8 mmol/L (3.4-5.0); Sodium 139 mmol/L (137-145); Total Protein 7.2 g/dL (6.3-8.2); Triglycerides 156 mg/dL (<150)
[2024-09-07 14:20] LABS: Hemoglobin A1C 6.1 % (<5.7)
[2024-09-07 14:49] LABS: Thyroid Stimulating Hormone 1.800 uIU/mL (0.465-4.680)
== END 2024-09-07 13:14 | disposition home or self-care (01) ==
LOC: CHSLAB 13:27
PROVIDERS: PCP Family Medicine; Visit Provider Family Medicine
DX: I10 Essential (primary) hypertension (principal); E11.9 Type 2 diabetes mellitus without complications; E78.2 Mixed hyperlipidemia; E03.8 Other specified hypothyroidism
CPT/HCPCS: 36415; 80053; 80061; 81001; 83036; 84443; 85025

== ENCOUNTER 2024-09-19 16:07 | Outpatient (CLI) | payer MEDICARE, OTHER, SELFPAY ==
--- NOTE | ~2024-09-19 | CT_ITS ---
EXAMINATION: CT facial bones w con DATE: 09/19/2024 17:02 INDICATION: orbital cellulitis, skin abscess . TECHNIQUE: Computed tomography (CT) of the facial bones and maxillofacial region was performed follow ing the administration of intravenous contrast. The dose-length product was 698.64 mGy-cm. COMPARISON: None. FINDINGS: Soft Tissues: Right-sided preseptal soft tissue swelling anterior and lateral to the right orbit. Right frontal scalp induration with dense foci of decreased attenuation, likely purulent material wit hout a significant fluid component. Facial bones: No acute fracture. No lytic or blastic process. Eyes: The globes are intact. Paranasal Sinuses: The visualized aerated spaces are clear. Foreign Bodies: No radiopaque foreign bodies. Other Findings: None. IMPRESSION: Right-sided preseptal soft tissue swelling anterior and lateral to the right orbit. No rim-enhancing fluid collection. Right frontal scalp induration with dense foci of decreased attenuation likely purulent material with out a significant fluid component. Reviewed, dictated and finalized at location A. IMPRESSION: Right-sided preseptal soft tissue swelling anterior and lateral to the right or bit. No rim-enhancing fluid collection. Right frontal scalp induration with dense foci of decreased attenuation likely purulent material without a significant fluid component.
--- NOTE | ~2024-09-19 | CT_ITS ---
EXAMINATION: CT brain wo con DATE: 09/19/2024 17:00 INDICATION: Orbital cellulitis. Skin abscess TECHNIQUE: Computed tomography (CT) of the head was performed without intravenous contrast. The dose- length product was 681.00 mGy-cm. COMPARISON: None FINDINGS: No acute intracranial hemorrhage. No mass effect. No midline shift. No hydrocephalus. Visualized paranasal sinuses and mastoid air cells are clear. No skull fracture. Moderate sized soft tissue density in the scalp in the right frontal region Right-sided preseptal soft tissue swelling about the right orbit. IMPRESSION: 1. No acute intracranial hemorrhage. No mass effect. 2. Right-sided preseptal soft tissue swelling about the right orbit. The findings may be secondary to cellulitis or post traumatic change. Recommend follow-up to resolution. 3. Moderate-sized soft tissue density in the scalp in the right frontal region. The finding may be se condary to a phlegmon or scalp hematoma. Other etiologies are possible. Recommend follow-up to resolu tion. No evidence for a loculated fluid collection/abscess in this location. Reviewed, dictated and finalized at location A. IMPRESSION: 1. No acute intracranial hemorrhage. No mass effect. 2. Right-sided preseptal soft tissue swelling about the right orbit. The findin gs may be secondary to cellulitis or post traumatic change. Recommend follow-up to resolution. 3. Moderate-sized soft tissue density in the scalp in the right frontal region. The finding may be secondary to a phlegmon or scalp hematoma. Other etiologies are possible. Recommend follow-up to resolution. No evidence for a loculated f luid collection/abscess in this location.
--- OUTSIDE RECORDS SUMMARY | 2024-09-19 16:15 | XMS_ITS | Encounter Summary ---
Author Organization [facility] Address 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
--- OUTSIDE RECORDS SUMMARY | 2024-09-19 16:15 | XMS_ITS | Encounter Summary ---
Author Organization [employer] Address 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
--- OUTSIDE RECORDS SUMMARY | 2024-09-19 16:15 | XMS_ITS | Clinical Summary ---
Author Organization [facility] [employer] Address [address] [place] [address] Care Team Providers Care Shot Polisher Name Role Phone Unavailable Primary Care Provider Unavailabl e Source Comments [facility],non-owned Affiliates and Associated Physician Practices is amultiple site organization consisting of ambulatory clinics and hospital sitesin [place], [place], [place] and [place]. This disclosure is being madepursuant to the Care Everywhere program and may not contain all information available regarding this patient. 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
--- OUTSIDE RECORDS SUMMARY | 2024-09-19 16:15 | XMS_ITS | Encounter Summary ---
Author Organization [facility] Address 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
--- OUTSIDE RECORDS SUMMARY | 2024-09-19 16:15 | XMS_ITS | Encounter Summary ---
Author Organization [employer] Address 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
--- OUTSIDE RECORDS SUMMARY | 2024-09-19 16:15 | XMS_ITS | Clinical Summary ---
Author Organization [facility] Address [address] [place] [address] Phone Care Team Providers Care Fire Department Marine Engineer Name Role Phone Jose Gutierrez MD Primary Care Provider [phone] Allergies Active Allergy Reactions Criticality Noted Date Comments Ubiqhrztrp-Vlnessm-Iiaoqxce Confusion Low 09/09/19 17 Diphenhydramine Hcl Rash Low 08/31/2010 Tylenol-Codeine Solution Unknown 09/08/2016 Medications levothyroxine 75 mcg tablet Take 75 mcg by mouth daily sheepskin pickler. 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 Gender Identity Not on file Sexual [...] 2037 Insurance MEDICARE PART A AND B [employer] Member Subscriber Plan / Payer ( fective 2020-) Name:Jannie Peña Relation to Subscriber:Self Name:Jannie Peña Payer ID:Not on file Group ID:Not on file Type: Address: [place] [id number] MEDICARE PART A AND B [employer] Advance Directives For more information, please contact: [phone] * Full Code (Latest Code Status on File) Date Activated Date Inactivated Comments 09/11/2016 5:03 PM 09/17/2016 6:16 PM * Full Code Date Activated Date Inactivated Comments 09/08/2016 11:58 PM 09/11/2016 5:03 PM Care Teams Fire Department Marine Engineer Relationship Specialty Start Date End Date Jose Gutierrez MD [facility] [place] [address] PCP - General Family Practice 09/09/16
--- OUTSIDE RECORDS SUMMARY | 2024-09-19 16:15 | XMS_ITS | Clinical Summary ---
Author Organization [facility] Address [facility] [place] [address] Care Team Providers Care Senior Grant Writer Name Role Phone Unavailable Primary Care Provider [...]
--- OUTSIDE RECORDS SUMMARY | 2024-09-19 16:15 | XMS_ITS | Encounter Summary ---
Author Organization [employer] Address 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
--- OUTSIDE RECORDS SUMMARY | 2024-09-19 16:15 | XMS_ITS | Encounter Summary ---
Author Organization [employer] Address 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
--- OUTSIDE RECORDS SUMMARY | 2024-09-19 16:15 | XMS_ITS | Continuity of Care Document ---
Author Organization [facility] Address [facility] [address] [address] Phone Care Team Providers Care Potato Spotter Name Role Phone Administrative, Provider Unavailable Unavail able Procedures Procedure Date MRI of lumbar spine Advance Directives Directive Yes / No Effective Date File Name No Information Encounters Encounter Description Practice Location Reason(s) For Visit Diagnoses Date Provider Providers Copied on Encounter [facility], [address] [place] [address], [id number], tel:[phone] [facility] No Information 6 Administrative Provider[address] [place] [address], [id number], . tel:[phone] [facility], [address] [place] [address], [id number], tel:[phone] [facility] No Information [address] [place] [address], [id number], [place]. tel:[phone] Referring Provider: Payam Barrientos, [address] [place] [address], [address] . tel:[phone] Family History Family Member Type Diagnosis Age At Onset No Information Payers Payer name Insurance type Covered constitution party ID Authoriza tion(s) [place] W[place] Part B MB [id number] For Life BL [id number] Social History Type Description Quantity Date Captured [...]
--- OUTSIDE RECORDS SUMMARY | 2024-09-19 16:15 | XMS_ITS | Encounter Summary ---
Author Organization [employer] Address 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
--- OUTSIDE RECORDS SUMMARY | 2024-09-19 16:15 | XMS_ITS | Encounter Summary ---
Author Organization [facility] Address [address] [place] [address] Care Team Providers Care Utilization Coordinator Name Role Phone Pcp, Unknown Primary Care Provider Unavailabl e Unknown, Provider Primary Care Provider Unavaila ble Unknown, Provider Primary Care Provider Unavaila ble Reason for Visit * Reason Onset Date Comments Appointment 06/05/2009 Patient called t o reschedule appointment for June 16, 2009. Encounter Details Date Type Department Care Team (Late st Contact Info) Description 06/05/[address] 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
--- OUTSIDE RECORDS SUMMARY | 2024-09-19 16:15 | XMS_ITS | Continuity of Care Document ---
Author Organization [facility] Address [address] [place] [address] Phone Care Team Providers Care Suggestion Clerk Name Role Phone Shahnaz FANGN SUKUMAR Liya Unavailable Unavailable Procedures Procedure Date Office/outpatient [...] Providers Copied on Encounter Office/outpat ient visit,est, [facility], [address] [place] [address], [id number], tel:[phone] [facility] No Information 9 Shahnaz Nickerson. [address] [place] [address], [id number] , [place]. tel:[phone] Referring Provider: Liya Dinh, [address] [place] [address], [address] . tel:[phone] Office/outpat ient visit,[facility], [facility], [address] [place] [address], [id number], tel:[phone] [facility] No Information 9 Shahnaz Nickerson. [address] [place] [address], [id number] , . tel:[phone] Referring Provider: Liya Dinh, [address] [facility] [address], [place], [address] . tel:[phone] Office/outpat ient visit,est, [facility], [address] [facility] [address], [place], [place], [id number], [place] [phone] [facility] No Information 3 8 Shahnaz Nickerson. [address] [facility], [facility] [address], [place], [place], [id number] , [place]. tel: [phone] Office/outpat ient visit,est, [facility], [address] [facility] [address], [place], [place], [id number], [place] [phone] [facility] No Information [address]. [address] [facility], [facility] [address], [place], [place], [id number] , [place]. tel: [phone] Office/outpat ient visit,est, [facility], [address] [address], [place], [place], [id number], [place] tel:[phone] [facility] No Information 8 [address]. [address] [facility], [facility] [address], [place], [place], [id number] , [place]. tel: [phone] [facility], [address] [address], [place], [place], [id number], [place] tel:[phone] [facility] No Information 8 [address]. [address] [facility], [facility] [address], [place], [place], [id number] , [place]. tel: [phone] [facility], [address] [address], [place], [place], [id number], [place] tel:[phone] [facility] No Information 0200 8 Shahnaz Nickerson. [address] [facility], [facility] [address], [place], [place], [id number] , [place]. tel: [phone] Referring Provider: Payam Barrientos, [address] [facility] [address], [place], [address] . tel:[phone] [facility], [address] [address], [place], [place], [id number], [place] tel:[phone] [facility] No Information 8 Peymanhugo Liya. [address] [address], [place], [place], [id number] , [place]. tel: [phone] Referring Provider: Payam Barrientos, [address] [address], [place], [address] . tel:[phone] [facility], [address] [address], [place], [place], [id number], [place] tel:[phone] [facility] No Information 8 [address]. [address] [address], [place], [place], [id number] , [place]. tel: [phone] Office/outpat ient visit,est, mod [facility], [address] [address], [place], [place], [id number], [place] tel:[phone] [facility] No Information 7 [address]. [address] [address], [place], [place], [id number] , [place]. tel: [phone] [facility], [address] [place] [address], [id number], [place] [phone] [facility] No Information 7 [address]. [address] [address], [place], [place], [id number] , [place]. tel: [phone] [facility], [address], [id number], [place] [phone] [facility] No Information 7 [address]. [address] [facility], [place], [place], [id number] , [place]. tel: [phone] Office/outpat ient visit,[facility], [facility], [address] [address], [place], [place], [id number], tel:[phone] [facility] No Information 7 [address]. [address] [facility], [facility] [address], [place], [place], [id number] , [place]. tel: [phone] Office/outpat ient visit,[facility], [facility], [address] [address], [place], [place], [id number], [phone] [facility] No Information Es Payam. [address] [facility], [place] [address], [place], [place], [id number] , [place]. tel: [phone] Family History Family Member Type Diagnosis Age At Onset No Information Payers Payer name Insurance type Covered libertarian ID Authoriza tion(s) Medicare [place] W[place] Part B MB [id number] For Life BL [id number] Social History Type Description Quantity Date Captured [...]
--- OUTSIDE RECORDS SUMMARY | 2024-09-19 16:15 | XMS_ITS | Encounter Summary ---
Author Organization [employer] Address 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
[2024-09-19 16:49] LABS: Estimated Glomerular Filt Rate 42
== END 2024-09-19 16:08 | disposition home or self-care (01) ==
PROVIDERS: PCP Family Medicine; Visit Provider Nurse Practitioner Family
DX: H05.011 Cellulitis of right orbit (principal); L02.811 Cutaneous abscess of head [any part, except face]
CPT/HCPCS: 70450; 70487; Q9967

== ENCOUNTER 2024-09-20 15:05 | Outpatient (CLI) | payer MEDICARE, OTHER, SELFPAY ==
--- OUTSIDE RECORDS SUMMARY | 2024-09-20 15:12 | XMS_ITS | Encounter Summary ---
Author Organization [employer] Address 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
--- OUTSIDE RECORDS SUMMARY | 2024-09-20 15:12 | XMS_ITS | Clinical Summary ---
Author Organization [facility] Address [facility] [place] [address] Care Team Providers Care Shortage Worker Name Role Phone Unavailable Primary Care [...]
--- OUTSIDE RECORDS SUMMARY | 2024-09-20 15:12 | XMS_ITS | Encounter Summary ---
Author Organization [employer] Address 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
--- OUTSIDE RECORDS SUMMARY | 2024-09-20 15:12 | XMS_ITS | Encounter Summary ---
Author Organization [employer] Address 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
--- OUTSIDE RECORDS SUMMARY | 2024-09-20 15:12 | XMS_ITS | Encounter Summary ---
Author Organization [employer] Address 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
--- OUTSIDE RECORDS SUMMARY | 2024-09-20 15:12 | XMS_ITS | Continuity of Care Document ---
Author Organization [facility] Address [facility] o[address] [address] Phone Care Team Providers Care Automobile Detailer Name Role Phone Administrative, Provider Unavailable Unavail able Procedures Procedure Date MRI of lumbar spine Advance Directives Directive Yes / No Effective Date File Name No Information Encounters Encounter Description Practice Location Reason(s) For Visit Diagnoses Date Provider Providers Copied on Encounter [facility], [address] [place] [address], [id number], tel:[phone] [facility] No Information 6 Administrative Provider. [address] [place] [address], [id number], . tel:[phone] [facility], [address] [place] [address], [id number], tel:[phone] [facility] No Information 200 7 Es Hare. [address] [place] [address], [id number], [place]. tel:[phone] Referring Provider: Payam Barrientos, [address] [place] [address], [address] . tel:[phone] Family History Family Member Type Diagnosis Age At Onset No Information Payers Payer name Insurance type Covered republican ID Authoriza tion(s) Medicare [place] WPS Part B MB [id number] For Life BL [id number] Social History Type Description Quantity Date Captured [...]
--- OUTSIDE RECORDS SUMMARY | 2024-09-20 15:12 | XMS_ITS | Encounter Summary ---
Author Organization [facility] Address 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
--- OUTSIDE RECORDS SUMMARY | 2024-09-20 15:12 | XMS_ITS | Encounter Summary ---
Author Organization [facility] Address [address] [place] [address] Care Team Providers Care Cheese Weigher Name Role Phone Pcp, Unknown Primary Care Provider Unavailabl e Unknown, Provider Primary Care Provider Unavaila ble Unknown, Provider Primary Care Provider Unavaila ble Reason for Visit * Reason Onset Date Comments Appointment 06/05/2009 Patient called t o reschedule appointment for June 16, 2009. 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
--- OUTSIDE RECORDS SUMMARY | 2024-09-20 15:12 | XMS_ITS | Encounter Summary ---
Author Organization [employer] Address 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
--- OUTSIDE RECORDS SUMMARY | 2024-09-20 15:12 | XMS_ITS | Encounter Summary ---
Author Organization [employer] Address 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
--- OUTSIDE RECORDS SUMMARY | 2024-09-20 15:12 | XMS_ITS | Clinical Summary ---
Author Organization [facility] Address [address] [place] [address] Care Team Providers Care Custom Car Builder Name Role Phone Unavailable Primary Care Provider Unavailabl e Source Comments [facility],non-owned Affiliates and Associated Physician Practices is amultiple site organization consisting of ambulatory clinics and hospital sitesin [place], [place], [place] and [place]. This disclosure is being madepursuant to the Care Everywhere program and may not contain all information available regarding this patient. 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
--- OUTSIDE RECORDS SUMMARY | 2024-09-20 15:12 | XMS_ITS | Encounter Summary ---
Author Organization [employer] Address 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
--- OUTSIDE RECORDS SUMMARY | 2024-09-20 15:13 | XMS_ITS | Continuity of Care Document ---
Author Organization [facility] Address [address] [place] [address] Phone Care Team Providers Care Airfield Defence Guard Name Role Phone Shahnaz FANGN SUKUMAR Liya [...] Providers Copied on Encounter Office/outpat ient visit,est, [facility], [address] [place] [address], [id number], tel:[phone] [facility] No Information 9 Shahnaz Nickerson. [address] [place] [address], [id number] , [place]. tel:[phone] Referring Provider: Liya Dinh, [address] [place] [address], [address] . tel:[phone] Office/outpat ient visit,[facility], [facility], [address] [place] [address], [id number], tel:[phone] [facility] No Information 9 Shahnaz Ncikerson. [address] [place] [address], [id number] , . tel:[phone] Referring Provider: Liya Dinh, [address], [place], [address] . tel:[phone] Office/outpat ient visit,est, [facility], [address] [facility] [address], [place], [place], [id number], [place] [phone] [facility] No Information 3 8 Shahnaz Nickerson. [address] [facility], [facility] [address], [place], [place], [id number] , [place]. tel: [phone] Office/outpat ient visit,est, [facility], [address] [facility] [address], [place], [place], [id number], [place] [phone] [facility] No Information 8 Es Hare. [address] [facility], [facility] [address], [place], [place], [id number] , [place]. tel: [phone] Office/outpat ient visit,est, [facility], [address] [address], [place], [place], [id number], [place] tel:[phone] [facility] No Information 8 Es Hare. [address] [facility], [facility] [address], [place], [place], [id number] , [place]. tel: [phone] [facility], [address] [address], [place], [place], [id number], [place] tel:[phone] [facility] No Information 8 Es Hare. [address] [facility], [facility] [address], [place], [place], [id number] , [place]. tel: [phone] [facility], [address] [address], [place], [place], [id number], [place] tel:[phone] [facility] No Information 0200 8 Shahnaz Nickerson. [address] [facility], [facility] [address], [place], [place], [id number] , [place]. tel: [phone] Referring Provider: Payam Barrinetos, [address] [facility] [address], [place], [address] . tel:[phone] [facility], [address] [address], [place], [place], [id number], [place] tel:[phone] [facility] No Information 8 Peymanhugo Liya. [address] [address], [place], [place], [id number] , [place]. tel: [phone] Referring Provider: Payam Barrientos, [address] [address], [place], [address] . tel:[phone] [facility], [address] [address], [place], [place], [id number], [place] tel:[phone] [facility] No Information 8 Es Hare. [address] [address], [place], [place], [id number] , [place]. tel: [phone] Office/outpat ient visit,est, mod [facility], [address] [address], [place], [place], [id number], [place] tel:[phone] [facility] No Information 7 Es Hare. [address] [address], [place], [place], [id number] , [place]. tel: [phone] [facility], [address] [place] [address], [id number], [place] [phone] [facility] No Information 7 Es Hare. [address] [address], [place], [place], [id number] , [place]. tel: [phone] [facility], [address], [id number], [place] [phone] [facility] No Information 7 Es Hare. [address] [facility], [address], [place], [place], [id number] , [place]. tel: [phone] Office/outpat ient visit,[facility], [facility], [address] [address], [place], [place], [id number], tel:[phone] [facility] No Information 7 Es Hare. [address] [facility], [facility] [address], [place], [place], [id number] , [place]. tel: [phone] Office/outpat ient visit,[facility], [facility], [address] [address], [place], [place], [id number], [phone] [facility] No Information Es Payam. [address] [facility], [address] [address], [place], [place], [id number] , [place]. tel: [phone] Family History Family Member Type Diagnosis Age At Onset No Information Payers Payer name Insurance type Covered green party ID Authoriza tion(s) Medicare [place] W[place] Part B MB [id number] For Life BL [id number] Social History Type Description Quantity Date Captured [...]
--- OUTSIDE RECORDS SUMMARY | 2024-09-20 15:13 | XMS_ITS | Clinical Summary ---
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 Gender Identity Not on file Sexual Orientation [...] 2037 Insurance MEDICARE PART A AND B Over[employer] Member Subscriber Plan / Payer ( fective 2020-) Name:Jannie Peña Relation to Subscriber:Self Name:Jannie Peña Payer ID:Not on file Group ID:Not on file Type: Address: [place] [id number] MEDICARE PART A AND B [employer] Advance Directives For more information, please contact: [phone] * Full Code (Latest Code Status on File) Date Activated Date Inactivated Comments 09/11/2016 5:03 PM 09/17/2016 6:16 PM * Full Code Date Activated Date Inactivated Comments 09/08/2016 11:58 PM 09/11/2016 5:03 PM Care Teams Ramp Flight Attendant Relationship Specialty Start Date End Date Jose Gutierrez MD [facility] [place] [address] PCP - General Family Practice 09/09/16
[2024-09-20 15:28] LABS: Hematocrit 41.2 % (35.0-49.0); Hemoglobin 13.7 g/dL (12.0-15.0); Mean Corpuscular HGB Conc 33.3 g/dL (32-36); Mean Corpuscular Hemoglobin 30.7 pg (27.0-31.0); Mean Corpuscular Volume 92.4 fL (78.0-102.0); Platelet Count Result 429 K/mm3 (150-420); Red Blood Count 4.46 M/mm3 (4.20-5.40); White Blood Count 11.3 K/mm3 (4.8-10.8)
[2024-09-20 15:38] LABS: Alanine Aminotransferase 22 U/L (6-35); Albumin Level 4.5 g/dL (3.5-5.1); Alkaline Phosphatase 108 U/L (38-126); Anion Gap 10 mmol/L (4-12); Aspartate Amino Transferase 27 U/L (14-36); Bilirubin,Total 0.7 mg/dL (0.2-1.3); Blood Urea Nitrogen 16 mg/dL (7-17); Calcium 9.8 mg/dL (8.4-10.2); Carbon Dioxide 27 mmol/L (22-30); Chloride 103 mmol/L (98-107); Estimated Glomerular Filt Rate 42; Glucose 116 mg/dL (65-110); Osmolality Calculated 292 mOsm/kg (285-295); Potassium 4.2 mmol/L (3.4-5.0); Sodium 140 mmol/L (137-145); Total Protein 8.5 g/dL (6.3-8.2)
== END 2024-09-20 15:06 | disposition home or self-care (01) ==
LOC: CHSLAB 15:10
PROVIDERS: PCP Nurse Practitioner Family; Visit Provider Nurse Practitioner Family
DX: H05.019 Cellulitis of unspecified orbit (principal); L02.01 Cutaneous abscess of face
CPT/HCPCS: 36415; 80053; 85027

== ENCOUNTER 2024-10-11 16:41 | Outpatient (RCR) | payer MEDICARE, OTHER, SELFPAY ==
--- NOTE | 2024-10-11 17:46 | OPREHPOC ---
Outpatient Therapy Plan of Care This is a Multidisciplinary Plan of Care that may contain components documented by all disciplines (PT, OT, and ST.) PT Problem 1 PT Problem #1 Knowledge Deficit PT Goal 1 Goal / Goal Update The patient will be independent in a home exercise program. Target Visit 2 PT Problem 2 PT Problem #2 Impaired Strength PT Goal 1 Goal / Goal Update The patient will improve right ankle dorsiflexion and eversion strength to 3/5 or better to decrease foot drop. Target Visit 12 PT Problem 3 PT Problem #3 Impaired Range of Motion PT Goal 1 Goal / Goal Update The patient will improve right ankle dorsiflexion AROM to -10 or better indicating less foot drop. The patient will improve right ankle eversion AROM to 10 degrees. Target Visit 12 PT Problem 4 PT Problem #4 Impaired Gait PT Goal 1 Goal / Goal Update The patient will demonstrate the ability to ambulate 600 feet with no toe drag on the right foot. Target Visit 12
--- NOTE | 2024-10-11 17:46 | PTOPEVAL1 ---
Assessment and note entered by Shelly Gonzalez, PT Evaluation Information Assessment Status Evaluation ICD-10 Condition Codes (PT) Difficulty Walking R26.2,Abnormalities of gait and mobility R26.9 Onset 10/09/24 Subjective Information Jannie Peña reports she had surgery on her lumbar spine in 2003 or 2005 consisting of a fusion at L4-5. She started to notice numbness in her right toes when she would sit cross legged. She then began doing ankle circles and pumps and noted that her right foot does not lift up as high as her left foot. She has a history of a medication overdose that caused her to have a decline in her ability to walk. She had to use a wheelchair and then eventually was able to start walking with a walker then cane and eventually without an AD. She denies falls and reports she walks funny. She reports she went to her doctor and was referred to PT and to get a CT scan. Reported Pain Level Pain Score 0: Self Report Assessment PT Clinical Summary Jannie Peña presents with right foot drop and difficulty walking. She has a history of a L4-5 spinal fusion in the past. She has difficulty with walking and lifting her right foot. She objectively demonstrates decreased right ankle dorsiflexion and eversion AROM, weakness in the ankle dorsiflexors and evertors, and altered gait. She will benefit from skilled PT to address these limitations. Plan of Care Interventions Electrical Stimulation,Gait Training,Hot Pack/Cold Pack,Manual Therapy,Neuro Re-education,Patient/ Caregiver Education,Therapeutic Activities, Therapeutic Exercise PT Services Indicated Yes Treatment Frequency and 3 times a week for 12 visits Duration These treatments will address the objective and functional deficits as defined above. The patient will be advanced safely and appropriately in order for the patient to progress towards his/her prior level of function. Additional exercises will be introduced and as well as a comprehensive home exercise program upon discharge, if needed, ?to ensure carryover of functional gains achieved in the clinic. This treatment plan has been reviewed and agreement upon by the patient.
--- NOTE | 2024-10-18 14:46 | PCPTNOTE ---
Patient called & cancelled scheduled appointment this date due to inability to make it in today and she wants to talk to her doctor before coming back in. -Shelly Gonzalez, PT
== END 2025-01-09 23:59 | disposition home or self-care (01) ==
LOC: CHSPT 16:41
PROVIDERS: PCP Nurse Practitioner Family; Visit Provider Nurse Practitioner Family
DX: R29.898 Other symptoms and signs involving the musculoskeletal system (principal); R26.81 Unsteadiness on feet
CPT/HCPCS: 97110; 97112; 97161